=== PATIENT | female | born 1945 | race African-American/Black ===

== ENCOUNTER 2017-05-21 06:09 | Emergency (ER) | payer MEDICARE, MEDICAID ==
[2017-05-21 07:37] LABS: Anion Gap 14 mmol/L (10-20); BUN (Urea Nitrogen) 30 mg/dL (9.8-20.1); Calc. Creatinine Clearance 0 mL/min (70-130); Calcium 8.7 mg/dL (7.8-10.44); Carbon Dioxide 30 mmol/L (23-31); Chloride 99 mmol/L (98-107); Estimated GFR-MDRD 7; Glucose 146 mg/dL (83-110); Potassium 5.3 mmol/L (3.5-5.1); Sodium 138 mmol/L (136-145)
[2017-05-21 07:41] LABS: Troponin I 0.041 ng/mL (< 0.028)
== END 2017-05-21 08:48 | disposition home or self-care (01) ==
LOC: ERS 06:09
DX: J20.9 Acute bronchitis, unspecified (principal); I12.0 Hypertensive chronic kidney disease with stage 5 chronic kidney disease or end stage renal disease; E11.22 Type 2 diabetes mellitus with diabetic chronic kidney disease; N18.6 End stage renal disease; R51 Headache; R79.89 Other specified abnormal findings of blood chemistry; J45.909 Unspecified asthma, uncomplicated; F17.210 Nicotine dependence, cigarettes, uncomplicated; Z79.4 Long term (current) use of insulin; Z99.2 Dependence on renal dialysis; Z79.899 Other long term (current) drug therapy
CPT/HCPCS: 36415; 83880; 93005

== ENCOUNTER 2017-11-02 15:00 | Observation (INO) | payer MEDICARE, OTHER ==
[2017-11-02] MEDS ORDERED: hydrALAZINE 20 MG/ML VIAL SLOW IVP SCH (17:45)
[2017-11-02 19:30] VITALS: BMI 23.8
[2017-11-02] MEDS ORDERED: hydrALAZINE 20 MG/ML VIAL SLOW IVP PRN (20:03)
[2017-11-02] MEDS ORDERED: Dextrose 50% Abboject 50 ML SYRINGE SLOW IVP PRN (20:03)
[2017-11-02] MEDS ORDERED: Acetaminophen 500 MG TAB PO PRN (20:03)
[2017-11-02] MEDS ORDERED: Dextrose 5% in Water 1,000 ML IV PRN (20:03)
[2017-11-02] MEDS ORDERED: Ondansetron HCl/PF 4 MG/2 ML Vial IVP PRN (20:03)
[2017-11-02] MEDS ORDERED: cloNIDine 0.1 MG TAB PO PRN (20:03)
[2017-11-02] MEDS ORDERED: HumaLOG 300 UNITS/3 ML VIAL SC PRN ×2 (20:03)
[2017-11-02] MEDS ORDERED: Ondansetron ODT 4 MG TAB PO PRN (20:03)
[2017-11-02] MEDS: hydrALAZINE 25 MG TAB PO SCH (20:43)
[2017-11-02] MEDS ORDERED: Famotidine 20 MG TAB PO SCH (21:00)
--- NOTE | 2017-11-03 00:58 | HP ---
DATE OF ADMISSION: 11/02/2017 PRIMARY CARE PHYSICIAN: Ana salguero. PRIMARY SILVICULTURE FORESTER: Dr. Bedolla. CHIEF COMPLAINT: General weakness and confusion. HISTORY OF PRESENT ILLNESS: This is a 72-year-old -Burmese female with a known history of en d-stage renal disease on hemodialysis Wednesday, , and Wednesday. Patient states she underwent her regular hemodialysis session on the date of admission when she began feeling "bad." Patient admi tted to some nausea and stomach pain; however, felt generally weak and felt like her dialysis took to o much fluid off her. Patient denied any increased swelling, but does state she has been out of her chronic antihypertensives over approximately a week's time. Patient states she ran out of her medica tion, but has not had them refilled. 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 Patient denied any unilat eral weakness, fever, chills, dysuria, change to her bowel habits or exposure history. Patient denie s any family members with similar symptoms. Patient denies any recent trauma, syncope, or falls. In the emergency room, patient underwent general evaluation including CT of the brain showing no acute process. Patient was noted with elevated blood pressures on initial evaluation in the emergency room in the 200s/70s. Patient received IV hydralazine with overall improved systolics into the 160s. Durga corado was transferred to the observation unit for further evaluation. PAST MEDICAL HISTORY: 1. End-stage renal disease with hemodialysis. 2. Diabetes mellitus type 2, insulin requiring. 3. Hypertension, labile. 4. Smokeless tobacco use. 5. History of seizure disorder. PAST SURGICAL HISTORY: 1. Status post left upper extremity AV fistula placement. 2. Status post right upper chest Juan catheter placement. 3. Status post bilateral tubal ligation. CURRENT MEDICATIONS: Based on previous records reviewed in 2014: 1. Atenolol 100 mg p.o. daily. 2. Calcitriol 0.25 mcg p.o. daily. 3. Calcium carbonate 500 mg p.o. t.i.d. 4. Clonidine 0.1 mg p.o. q.4 hours p.r.n. systolic blood pressure greater than or equal to 180. 5. Hydralazine 75 mg p.o. t.i.d. 6. NPH insulin 10 units subcutaneously t.i.d. 7. Losartan 100 mg p.o. daily. 8. Minoxidil 5 mg p.o. daily. 9. Dilantin 200 mg p.o. b.i.d. ALLERGIES: SULFA. FAMILY HISTORY: Positive for hypertension and diabetes. SOCIAL HISTORY: Patient resides in the [place], [place] area with her son. Uses chewing tobacco jon y. No alcohol or illicit drug use. REVIEW OF SYSTEMS: The following complete review of systems was otherwise negative except as stated per HPI: Constitutional: Weight loss or gain, ability to conduct usual activities. Skin: Rash, it pastora. Eyes: Double vision, pain. ENT/Mouth: Nose bleeding, neck stiffness, pain, tenderness. Ca rdiovascular: Palpitations, dyspnea on exertion, orthopnea. Respiratory: Shortness of breath, whee zing, cough, hemoptysis, fever, or night sweats. Gastrointestinal: Poor appetite, abdominal pain, h eartburn, nausea, vomiting, constipation, or diarrhea. Genitourinary: Urgency, frequency, dysuria, nocturia. Musculoskeletal: Pain, swelling. Neurologic/Psychiatric: Anxiety, depression. Allergy/ Immunologic: Skin rash, bleeding tendency. PHYSICAL EXAMINATION: VITAL SIGNS: Currently, blood pressure 184/77, pulse 83, respiratory rate is 21, temperature 98.7 de grees Fahrenheit, O2 saturation 95% on room air. GENERAL APPEARANCE: This is a 72-year-old -Burmese female, alert and oriented x3, responsive , in no acute distress. HEENT: Pupils are equal, round, and reactive to light and accommodation. Extraocular muscles are in tact. No scleral icterus, no conjunctival injection. Nares patent. OP is clear. Teeth in poor rep air. NECK: Supple, no cervical adenopathy, no thyromegaly, no carotid bruits, no JVD appreciated. Cervic al spine with full active and passive range of motion. No meningeal signs noted. CHEST: Lungs are clear to auscultation bilaterally. CARDIOVASCULAR: S1, S2 with 3 to 4/6 systolic ejection murmur in the left upper sternal border. ABDOMEN: Rounded, soft, nontender, nondistended. Bowel sounds are positive in all four quadrants. There is no hepatosplenomegaly, no abdominal bruits, no rebound or guarding appreciated. EXTREMITIES: Warm and dry with fair turgor. Left upper extremity with AV fistula in place. No club christiano, cyanosis, or asymmetric edema of the lower extremities. Pulses are palpable distally at the do rsalis pedis, posterior tibial, and popliteal arteries bilaterally. Capillary refill less than 2 sec onds. NEUROLOGIC: Cranial nerves II-XII are grossly intact. No focal or lateralizing signs appreciated. Patient not observed ambulatory during this exam. PERTINENT LABORATORY AND X-RAY FINDINGS: Creatinine 5.80 estimated GFR of 9, glucose 113. LFTs with in normal limits. BNP 1067, previously noted 796 on 05/21/2017. Troponin I 0.072. CBC showed a whi te blood cell count of 5.5, hemoglobin 12, hematocrit 38, platelet count 223 with normal differential . Stool hemoccult dated 11/02/[address] of the brain without contrast dated 11/02/2017 s howed no acute cardiopulmonary process. Portable chest x-ray dated 11/02/2017 showed cardiomegaly wi thout acute process. EKG dated 11/02/2017, by my interpretation shows a sinus mechanism with heart r ates in the 60s. Incomplete right bundle branch block pattern noted. Voltage criteria consistent wi th left ventricular hypertrophy. No acute ST-T wave changes appreciated. ASSESSMENT AND PLAN: 1. Hypertensive urgency. Patient will be observed on the telemetry unit. We will initiate home ant ihypertensive regimen to include atenolol, hydralazine, losartan, and minoxidil. We will continue to monitor blood pressure trend. Clonidine and hydralazine p.r.n. systolic greater than or equal to 18 0. Suspect patient's presentation due to noncompliance. 2. Encephalopathy. Suspect metabolic and hypertensive related, improved currently. See #1 above. 3. End-stage renal disease with hemodialysis. We will continue to monitor clinically. No current e vidence to suggest acute volume overload. Patient completed her maintenance hemodialysis on the date of admission. 4. Noncompliance. We will offer educational resources to encourage compliance after discharge. 5. Smokeless tobacco abuse. We will offer cessation resources prior to discharge. 6. Prophylaxis. Sequential compression devices while in bed. Pepcid 20 mg p.o. b.i.d. 7. Code status is FULL. Surrogate medical decision maker is patient's son.
[2017-11-03] MEDS: hydrALAZINE 25 MG TAB PO SCH (06:13)
[2017-11-03 06:42] LABS: Hemoglobin 11.5 g/dL (12.0-16.0); Lymphocytes 18 % (21-51); MDiff Complete? YES; Mean Corpuscular HGB CONC 31.7 g/dL (32.0-36.0); Mean Corpuscular Hemoglobin 30.2 pg (27.0-31.0); Mean Corpuscular Volume 95.2 fL (78.0-98.0); Mean Platelet Volume 9.3 fL (7.4-10.4); Monocytes 4 % (0-10); Neutrophil 78 % (42-75); PLT Morphology Comment Appears Adequate; Platelet Count 242 thou/uL (130-400); RBC Distribution Width 14.5 % (11.5-14.5); RBC Morphology Normal; Red Blood Cell (RBC) Count 3.79 mill/uL (4.20-5.40); White Blood Cell (WBC) Count 5.6 thou/uL (4.8-10.8)
[2017-11-03 06:44] LABS: Anion Gap 13 mmol/L (10-20); BUN (Urea Nitrogen) 50 mg/dL (9.8-20.1); Calc. Creatinine Clearance 8 mL/min (70-130); Calcium 8.8 mg/dL (7.8-10.44); Carbon Dioxide 31 mmol/L (23-31); Chloride 99 mmol/L (98-107); Estimated GFR-MDRD 6; Glucose 83 mg/dL (83-110); Sodium 138 mmol/L (136-145)
[2017-11-03] MEDS ORDERED: Calcium Carbonate 500 MG ChewTAB PO SCH (08:00)
[2017-11-03] MEDS ORDERED: Calcitriol 0.25 MCG CAP PO SCH (09:00)
[2017-11-03] MEDS ORDERED: Minoxidil 2.5 MG TAB PO SCH (09:00)
[2017-11-03] MEDS ORDERED: Losartan 25 MG TAB PO SCH (09:00)
[2017-11-03] MEDS ORDERED: Atenolol 50 MG TAB PO SCH (09:00)
[2017-11-03 09:31] VITALS: TEMP 98.6
[2017-11-03 09:42] VITALS: BP 151/65
--- NOTE | 2017-11-03 12:30 | DIS ---
DATE OF ADMISSION: 11/02/2017 DATE OF DISCHARGE: 11/03/2017 DISCHARGE DIAGNOSES: 1. Hypertensive urgency due to medication noncompliance, resolved. 2. Encephalopathy, likely hypertensive induced, resolved. 3. End-stage renal disease with hemodialysis. 4. Smokeless tobacco abuse. 5. Medication noncompliance. 6. Diabetes mellitus type 2, insulin requiring. CONSULTATIONS: None. PERTINENT LABORATORY DATA AND X-RAY FINDINGS: Creatinine 7.49, estimated GFR of 6, calcium 8.8. CBC showed a white blood cell count of 5.6, hemoglobin 11.5, hematocrit 36.1, platelet count 242. Stool Hemoccult negative x1 on 11/02/2017. CT of the brain without contrast dated 11/02/2017 showed no ac [place] intracranial process. Portable chest x-ray dated 11/02/2017 showed no acute cardiopulmonary proc ess. HOSPITAL COURSE: Patient was observed on the telemetry unit after initially presenting with general weakness and hypertensive urgency in the context of running out of her blood pressure medications ove r the last 5-7 days. The patient was noted with mild confusion and encephalopathy likely due to hype rtensive factors. The patient was resumed on her regular blood pressure regimen with overall stable blood pressures during the hospital course. Metabolic and radiographic workup was essentially unrema rkable and patient remained clinically stable. Telemetry monitoring showed sinus mechanism without e vidence of acute arrhythmia or dysrhythmia. The patient overall clinically stable with supportive ma nagement and resumption of home blood pressure regimen. I have examined the patient at the time of d ischarge and discussed followup instructions. The patient overall clinically stable and ready for d ischarge on 11/03/2017. DISCHARGE MEDICATIONS: 1. Norvasc 10 mg 1 tab p.o. daily. 2. Atenolol 25 mg 1 tab p.o. daily. 3. Clonidine 0.2 mg p.o. b.i.d. 4. Hydralazine 50 mg p.o. t.i.d. 5. NPH insulin 30 units subcutaneously daily. 6. Albuterol sulfate HFA 2 puffs inhaled q.i.d. p.r.n. 7. Renvela 800 mg p.o. t.i.d. 8. Zoloft 50 mg p.o. daily. FOLLOWUP: The patient will follow up with [facility] in [place], [place]. The patient will follow u p with Dr. Bedolla with [facility] for hemodialysis Tuesdays, , and Saturdays. CONDITION ON DISCHARGE: Stable. ACTIVITY: Ad connor. DIET: ADA and heart healthy. CODE STATUS: FULL. DISPOSITION: Home 11/03/2017.
--- NOTE | 2017-11-03 17:04 | EKG ---
Test Reason : Blood Pressure : / mmHG Vent. Rate : 069 BPM Atrial Rate : 069 BPM P-R Int : 162 ms QRS Dur : 112 ms QT Int : 450 ms P-R-T Axes : 070 -54 025 degrees QTc Int : 482 ms Normal sinus rhythm Possible Left atrial enlargement Incomplete right bundle branch block Left anterior fascicular block Left ventricular hypertrophy Cannot rule out Septal infarct , age undetermined Abnormal ECG Confirmed by JOSE CHOWDARY, DR. Schilling ([id number]) on 11/03/2017 5:04:08 PM Referred By: Confirmed By:DR. Shakir GARCIA MD
[2017-11-03] MEDS ORDERED: Famotidine 20 MG TAB PO SCH (21:00)
== END 2017-11-03 10:11 | disposition home or self-care (01) ==
LOC: ERS 15:00 → 2SW 19:02
PROVIDERS: ADMIT Internal Medicine; ATTEND Internal Medicine
DX: I16.0 Hypertensive urgency (principal); G93.40 Encephalopathy, unspecified; I12.0 Hypertensive chronic kidney disease with stage 5 chronic kidney disease or end stage renal disease; E11.22 Type 2 diabetes mellitus with diabetic chronic kidney disease; N18.6 End stage renal disease; G40.909 Epilepsy, unspecified, not intractable, without status epilepticus; F17.290 Nicotine dependence, other tobacco product, uncomplicated; Z79.4 Long term (current) use of insulin; Z79.899 Other long term (current) drug therapy; Z88.2 Allergy status to sulfonamides; Z91.14 Patient's other noncompliance with medication regimen; Z99.2 Dependence on renal dialysis
CPT/HCPCS: 80048; 82274; 82962; 85007; 85027; 93005; 96374; 99285; G0378 ×2; 36415; 36416; A4216; J0360

== ENCOUNTER 2017-11-03 23:44 | Emergency (ER) | payer MEDICARE, OTHER ==
[2017-11-04] MEDS ORDERED: Acetaminophen 500 MG TAB ONE (00:55)
[2017-11-04] MEDS ORDERED: cloNIDine 0.1 MG TAB ONE (01:14)
[2017-11-04 01:25] LABS: ALT (SGPT) 13 U/L (8-55); AST (SGOT) 24 U/L (5-34); Albumin 4.1 g/dL (3.4-4.8); Alkaline Phosphatase 74 U/L (40-150); Anion Gap 20 mmol/L (10-20); BUN (Urea Nitrogen) 61 mg/dL (9.8-20.1); Bilirubin, Total 0.7 mg/dL (0.2-1.2); Calc. Creatinine Clearance 0 mL/min (70-130); Calcium 9.9 mg/dL (7.8-10.44); Carbon Dioxide 26 mmol/L (23-31); Chloride 96 mmol/L (98-107); Estimated GFR-MDRD 5; Globulin 3.5 g/dL (2.4-3.5); Glucose 179 mg/dL (83-110); Potassium 5.4 mmol/L (3.5-5.1); Protein, Total 7.6 g/dL (6.0-8.3); Sodium 137 mmol/L (136-145)
[2017-11-04 01:36] LABS: #Eosinphils 0.1 thou/uL (0.0-0.7); #Lymphocytes 0.9 thou/uL (1.20-3.40); #Monocytes 0.4 thou/uL (0.11-0.59); #Neutrophils 6.8 thou/uL (1.40-6.50); %Basophils 0.4 % (0.0-1.0); %Eosinophils 0.7 % (0.0-10.0); %Lymphocytes 10.6 % (21.0-51.0); %Monocytes 5.3 % (0.0-10.0); %Neutrophils 83.1 % (42.0-75.0); Hemoglobin 12.2 g/dL (12.0-16.0); Mean Corpuscular HGB CONC 31.6 g/dL (32.0-36.0); Mean Corpuscular Volume 95.1 fL (78.0-98.0); Mean Platelet Volume 9.5 fL (7.4-10.4); PLT Morphology Comment Appears Adequate; Platelet Count 180 thou/uL (130-400); RBC Distribution Width 14.5 % (11.5-14.5); Red Blood Cell (RBC) Count 4.08 mill/uL (4.20-5.40); White Blood Cell (WBC) Count 8.1 thou/uL (4.8-10.8)
[2017-11-04] MEDS ORDERED: Insulin Regular 300 UNITS/3 ML VIAL ONE (02:04)
[2017-11-04] MEDS ORDERED: Sodium Chloride For Inhalation 0.9% 3 ML NEB ONE (02:08)
[2017-11-04] MEDS ORDERED: Sodium Chloride 0.9% 100 ML ONE (02:08)
[2017-11-04] MEDS ORDERED: Albuterol Sulfate 2.5 mg/3 ml Neb ONE (02:08)
--- NOTE | 2017-11-04 08:08 | RAD ---
PORTABLE CHEST 1 VIEW: Date: 11/04/17 Time: 0018 hours HISTORY: Fall. FINDINGS: Comparison made with exam of 11/02/17. The heart size is enlarged. The aorta is tortuous. The lungs are well expanded without lobar consolid ation, pneumothoraces, kamlesh pulmonary edema, or pleural effusions. There are degenerative changes in the shoulder joints. IMPRESSION: Cardiomegaly. POS: [facility]
--- NOTE | 2017-11-04 08:56 | CT ---
PRELIMINARY REPORT/[facility]/EMERGENTY AFTER-HOURS PROCEDURE CT Head Without Intravenous Contrast EXAM DATE/TIME: 11/04/2017 12:27 AM CLINICAL HISTORY: 72 years old, female; Injury or trauma and signs and symptoms; Fall; Initial encounter; Abrasion; Not specified; Altered mental status/memory loss; Prior surgery; Patient HX: F72 dialysis patient presen ts to ed for evaluation of AMS. Son reports that the neighbors called ems due to the patient falling, and reports that she lives by herself. PT reports that her head hurts, and does not remember if she hit it TECHNIQUE: Axial computed tomography images of the head/brain without intravenous contrast. COMPARISON: No relevant prior studies available. FINDINGS: Brain: No evidence of acute large vessel infarction. No evidence of acute intracranial hemorrhage, ex traxial fluid or midline shift. Mild low density changes within the white matter bilaterally. Cerebel lum atrophic; otherwise, posterior fossa structures within normal limits. Ventricles: Mild prominence of the cerebral sulci and ventricles. Bones/joints: Normal. No acute fracture. Sinuses: Normal as visualized. No acute sinusitis. Mastoid air cells: Normal as visualized. No mastoid effusion. Soft tissues: Metallic densities in right posterior temporal-parietal scalp creates artifact limiting this study. IMPRESSION: 1. Metallic densities in right posterior temporal scalp creates artifact limiting this study. 2. No evidence of acute large vessel infarction. 3. No evidence of acute intracranial hemorrhage, extraxial fluid or midline shift. 4. Mild cerebral atrophy. 5. 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 Thank you for allowing us to participate in the care of your patient. Dictated and Authenticated by: Rita Echeverria MD 11/04/2017 12:57 AM Central Time ([place] & [place]) FINAL REPORT EMERGENCY AFTER HOURS CT BRAIN PERFORMED WITHOUT CONTRAST ENHANCEMENT: Date: 11/04/17 HISTORY: Fall with head injury. Altered mental status. COMPARISON: 11/02/17. FINDINGS: Area of metallic artifact obscures detail in the right parietooccipital region. Ventricular and ciste rnal system shows fairly age-appropriate change. There is chronic ischemic white matter change noted. No signs of intracerebral hemorrhage or extra-axial fluid collections. Mastoid air cells are clear. There is some ethmoid and maxillary sinus mucosal change. IMPRESSION: No acute intracranial abnormalities. This report is in agreement with the preliminary report issued by [facility]. POS: [facility]
--- NOTE | 2017-11-06 15:17 | EKG ---
Test Reason : Blood Pressure : / mmHG Vent. Rate : 073 BPM Atrial Rate : 073 BPM P-R Int : 184 ms QRS Dur : 124 ms QT Int : 448 ms P-R-T Axes : 072 -58 073 degrees QTc Int : 493 ms Normal sinus rhythm Possible Left atrial enlargement Left anterior fascicular block Left ventricular hypertrophy with QRS widening Septal infarct , age undetermined Abnormal ECG Confirmed by AARON BE DO ([id number]), writer editor VEENA YANG ([id number]) on 11/06/2017 3:17:06 PM Referred By: Confirmed By:AARON BE DO
== END 2017-11-04 03:28 | disposition home or self-care (01) ==
LOC: ERS 23:44
DX: E11.65 Type 2 diabetes mellitus with hyperglycemia (principal); I12.0 Hypertensive chronic kidney disease with stage 5 chronic kidney disease or end stage renal disease; N18.6 End stage renal disease; J45.909 Unspecified asthma, uncomplicated; E11.22 Type 2 diabetes mellitus with diabetic chronic kidney disease; Z79.4 Long term (current) use of insulin; Z99.2 Dependence on renal dialysis; F17.220 Nicotine dependence, chewing tobacco, uncomplicated; Z79.899 Other long term (current) drug therapy
CPT/HCPCS: 36415; 36416; 70450; 71045; 80053; 85025; 93005; 94640; J1815; J7050; J7611

== ENCOUNTER 2017-11-04 08:53 | Observation (INO) | payer MEDICARE, MEDICAID ==
[2017-11-04 09:54] LABS: #Basophils 0.1 thou/uL (0.0-0.2); #Eosinphils 0.1 thou/uL (0.0-0.7); #Monocytes 0.5 thou/uL (0.11-0.59); #Neutrophils 4.8 thou/uL (1.40-6.50); %Basophils 0.8 % (0.0-1.0); %Eosinophils 1.2 % (0.0-10.0); %Lymphocytes 15.7 % (21.0-51.0); %Monocytes 8.1 % (0.0-10.0); %Neutrophils 74.2 % (42.0-75.0); Hemoglobin 11.1 g/dL (12.0-16.0); Mean Corpuscular HGB CONC 31.7 g/dL (32.0-36.0); Mean Corpuscular Hemoglobin 30.2 pg (27.0-31.0); Mean Corpuscular Volume 95.3 fL (78.0-98.0); Mean Platelet Volume 9.1 fL (7.4-10.4); Platelet Count 215 thou/uL (130-400); RBC Distribution Width 14.4 % (11.5-14.5); Red Blood Cell (RBC) Count 3.66 mill/uL (4.20-5.40); White Blood Cell (WBC) Count 6.5 thou/uL (4.8-10.8)
--- NOTE | 2017-11-04 09:54 | RAD ---
PORTABLE CHEST: History: Syncopal episode. Comparison: Earlier exam, same day. FINDINGS: Heart size is enlarged. No signs of overt pulmonary edema or focal infiltrate. IMPRESSION: Cardiomegaly. POS: [facility]
[2017-11-04 10:18] LABS: ALT (SGPT) 12 U/L (8-55); AST (SGOT) 23 U/L (5-34); Albumin 3.6 g/dL (3.4-4.8); Alkaline Phosphatase 65 U/L (40-150); Anion Gap 12 mmol/L (10-20); BUN (Urea Nitrogen) 38 mg/dL (9.8-20.1); Bilirubin, Total 0.6 mg/dL (0.2-1.2); Calc. Creatinine Clearance 0 mL/min (70-130); Calcium 8.9 mg/dL (7.8-10.44); Carbon Dioxide 29 mmol/L (23-31); Chloride 99 mmol/L (98-107); Estimated GFR-MDRD 8; Globulin 3.1 g/dL (2.4-3.5); Glucose 112 mg/dL (83-110); Potassium 4.4 mmol/L (3.5-5.1); Protein, Total 6.7 g/dL (6.0-8.3); Sodium 136 mmol/L (136-145)
[2017-11-04 10:20] LABS: Troponin I 0.152 ng/mL (< 0.028)
--- NOTE | 2017-11-04 12:51 | CT ---
CT OF ABDOMEN AND PELVIS PERFORMED WITH INTRAVENOUS CONTRAST ENHANCEMENT: HISTORY: Abdominal pain, constipation. The patient also presented for a syncopal episode while the patient wa s at dialysis. FINDINGS: There are very small bilateral pleural effusions and bibasilar atelectatic lung change seen. There is a small hiatal hernia noted. The liver and spleen are within normal limits of size. Pancreas region is unremarkable. The gallbla dder is normal in appearance. There is a right adrenal mass which does not have features of an adenoma. It measures 2.5 cm in size . This will need to be followed up. The left adrenal is unremarkable. There are hypodensities involving both kidneys with a 4.3 cm hypodensity involving the left kidney wh ich has CT Hounsfield numbers that would suggest a cyst. There is a smaller hypodense lesion involvi ng the right kidney which has CT numbers that are not definitive for being a cyst being at 25 H[address] unit. This lesion measures 2.2 cm. There is a higher attenuation lesion involving the posterior cortex of the left kidney which could be a complex cyst versus a solid mass. It is seen on axial im age 32. It measures 2.1 cm. Other smaller lesions are too small to definitively characterize. Ther e is no significant periaortic or mesenteric adenopathy. There are fairly extensive vascular calcifi cations noted. No signs of bowel obstruction or evidence for any ascites. CT OF PELVIS PERFORMED WITH CONTRAST ENHANCEMENT: Bladder wall appears somewhat thickened. Even considering the degree of underdistension, I do not se e any adenopathy or mass. IMPRESSION: 1. Tiny bilateral pleural effusions. 2. Hypodensities involving both kidneys. Both kidneys were borderline small. Some of these lesions do not fulfill cyst criteria. They are most likely complex cysts, possibly hemorrhage, but a solid lesion is not definite excluded. Followup at least to assess for change in size would be recommended . 3. Indeterminate 2.5 cm right adrenal mass. It does not have features of an adenoma, but could stil l certainly represent a benign lesion. 4. Mild nonspecific bladder wall thickening. 5. Arthritic changes of the spine and both hips with particularly severe changes of the left hip. POS: [facility]
[2017-11-04] MEDS ORDERED: ISOVUE-370 76%-LOCM 1 ML ONE (14:49)
[2017-11-04] MEDS ORDERED: Iopamidol 370 76% 50 ML VIAL FS ONE (14:49)
[2017-11-04] MEDS ORDERED: Dextrose 50% Abboject 50 ML SYRINGE SLOW IVP PRN (14:54)
[2017-11-04] MEDS ORDERED: Nitroglycerin 0.4 MG TAB (25 Tab Bottle) PO PRN (14:54)
[2017-11-04] MEDS ORDERED: Dextrose 5% in Water 1,000 ML IV PRN (14:54)
[2017-11-04] MEDS ORDERED: Insulin Regular 300 UNITS/3 ML VIAL SC PRN ×2 (14:54)
[2017-11-04] MEDS ORDERED: hydrALAZINE 20 MG/ML VIAL SLOW IVP PRN (14:56)
[2017-11-04] MEDS ORDERED: Labetalol HCl 100 MG/20 ML VIAL SLOW IVP PRN (14:56)
[2017-11-04] MEDS ORDERED: Mag-Al 1200 mg/1200 mg/30 ML UDCUP PO PRN (14:57)
[2017-11-04] MEDS ORDERED: cloNIDine 0.1 MG TAB PO PRN (14:57)
[2017-11-04] MEDS ORDERED: Senokot 8.6 MG TAB PO PRN (14:57)
[2017-11-04] MEDS ORDERED: Ondansetron ODT 4 MG TAB PO PRN (14:57)
[2017-11-04] MEDS ORDERED: Acetaminophen 325 MG TAB PO PRN (14:57)
[2017-11-04] MEDS ORDERED: Ondansetron HCl/PF 4 MG/2 ML Vial IVP PRN (14:57)
[2017-11-04] MEDS ORDERED: Calcium Carbonate 500 MG ChewTAB PO PRN (14:57)
--- NOTE | 2017-11-04 15:11 | HP ---
DATE OF ADMISSION: 11/04/2017 CHIEF COMPLAINT: Syncopal episode. HISTORY OF PRESENT ILLNESS: The patient is a 72-year-old female with end-stage renal disease, on hemodialysis; diabetes mellitus type 2; and hypertension, who presented to the emergency room after a syncopal episode earlier today while she was at dialysis center. Her blood pressure at that time was in systolic 80s. The patient was discharged from this facility yesterday. She was admitted with hypertensive urgency. It was unclear what medications she took prior to admission. She was discharged home on Clonidine 0.2 mg twice a day, atenolol 25 mg daily, amlodipine 10 mg daily, hydralazine 50 mg 3 times a day. She was seen in the emergency room last night as well for altered mentation and was discharged home. CT brain was negative at that time. Blood pressure was 193/ 91. She received a dose of clonidine and was discharged home. At this time, the patient is somnolent; however, is able to answer appropriately. The history obtained from the chart as well as the son at the bedside. She denies any nausea, vomiting, chest discomfort, palpitations or pain at this time. In the emergency room, her initial vital signs showed temperature 98.1, respirations 20, pulse rate of 78 with a blood pressure 167/77 with O2 saturation 95% on room air. Her chest x-ray was negative for acute findings. CT abdomen showed bilateral pleural effusion without any acute findings. CT brain is pending at this time. PAST MEDICAL HISTORY: 1. End-stage renal disease, on hemodialysis, managed by Dr. Bedolla. 2. Hypertension with recent hospitalization for hypertensive urgency. 3. Tobacco dependence. 4. History of seizure disorder in the past. 5. Secondary hyperparathyroidism. 6. DM2 PAST SURGICAL HISTORY: 1. Dialysis access. 2. Bilateral tubal ligation. CURRENT HOME MEDICATIONS: At the bedside, the patient has the following medications clonidine 0.2 mg twice a day, hydralazine 50 mg 3 times a day, albuterol inhaler as needed, amlodipine 10 mg daily (the bottle was empty), atenolol 25 mg daily. ALLERGIES: The patient is allergic to SULFA. FAMILY HISTORY: Positive for hypertension and diabetes. SOCIAL HISTORY: She currently lives alone in [place]. Her son lives close by. She chews tobacco. No alcohol or drug use. She makes her own decision with the help of her family. REVIEW OF SYSTEMS: Cannot be reliably obtained from the patient due to current cognitive status. PHYSICAL EXAMINATION: VITAL SIGNS: As discussed above. GENERAL: A 72-year-old female, somnolent, in no apparent distress. HEENT: Head atraumatic, normocephalic. Sclerae are anicteric. Moist mucous membrane, no oral lesion. NECK: Supple, no JVD appreciated. No carotid bruit. LUNGS: Clear to auscultation bilaterally. No significant wheezing, rales or rhonchi. HEART: S1, S2 present. Regular rate and rhythm. A 3/6 systolic murmur over the mitral area. ABDOMEN: Soft, nontender, bowel sounds present. EXTREMITIES: No edema or calf tenderness. NEUROLOGIC/PSYCHIATRIC: Limited due to current cognitive status. The patient is somnolent; however, arousable and answers question appropriately most of the time. SKIN: Warm and dry. LYMPH NODES: No palpable lymph nodes in the neck. LABORATORY AND X-RAY FINDINGS: CBC showed WBC 6.5 with hemoglobin 11.1, hematocrit 34.9, platelet of 215. Chemistries showed sodium 136, potassium 4.4 , chloride 99, bicarbonate 29, BUN 38, creatinine 6.23, troponin 0.152. Chest x -ray by my review showed cardiomegaly without any acute findings. EKG by my review showed sinus rhythm with left anterior fascicular block and left ventricular hypertrophy. IMPRESSION: 1. Syncopal episode, probably secondary to hypotension. Her blood pressure was in systolic 80s at the dialysis center. She was started on clonidine, atenolol, hydralazine and amlodipine yesterday. 2. End-stage renal disease, on hemodialysis. Dr. Bedolla has been notified. 3. Elevated troponins in the indeterminate range. Troponins yesterday was 0.072. Today was 0.152. Echocardiogram will be obtained. We will also consult Dr. Duran for optimization of her blood pressure medication. She also has hypertensive heart disease on the EKG. 4. Long history of tobacco dependence. We will youth counselor her prior to discharge. 5. Encephalopathy, suspected secondary to labile blood pressure. 6. Chronic anemia secondary to renal insufficiency. 7. Right-sided adrenal mass found on the CT. Primary care physician advised to follow. 8. Suspected renal cyst. Follow up is recommended as outpatient. 9. DM2 The patient will be monitored as a 23-hour observation for now. A low dose aspirin will be started as well. CT scan of the brain is pending at this time. MTDD
--- NOTE | 2017-11-04 15:48 | CT ---
CT BRAIN: Date: 11-04-17 Provided Clinical History: Syncope. FINDINGS: Comparison is made with the CT examination performed earlier same date. Metallic densities in the right parietal scalp produce beam hardening artifact. Accompanied by patien t motion, these dramatically reduce the sensitivity of this examination. Given these limitations, the re is no evidence for mass producing intracranial hemorrhage. The ventricular system appears nondilat ed. No shift of the midline structures is evident. The basilar cisterns appear patent. The extracrani al soft tissues and osseous structures appear grossly normal. IMPRESSION: Limited study. No evidence for mass producing intracranial hemorrhage. POS: [facility]
[2017-11-04 16:07] LABS: Troponin I 0.214 ng/mL (< 0.028)
[2017-11-04 17:38] VITALS: BMI 24.5
[2017-11-04 19:04] LABS: Troponin I 0.239 ng/mL (< 0.028)
[2017-11-04] MEDS: Docusate 100 MG CAP PO SCH (20:21)
[2017-11-04] MEDS: hydrALAZINE 25 MG TAB PO SCH (20:21)
--- NOTE | 2017-11-04 20:55 | CON-2 ---
DATE OF CONSULTATION: 11/04/2017 CONSULTING PHYSICIAN: Deyanira Duran M.D. HISTORY OF PRESENT ILLNESS: Starr Fierro is a 72-year-old female with a past medical history of end-stag e renal disease on hemodialysis, type 2 diabetes mellitus and hypertension, who was sent over to the emergency room from dialysis after a syncopal episode which occurred during dialysis. Her blood pres sure at the time of the syncopal event was in the 80s systolic. The patient was recently discharged from [facility] on 11/03. She was observed in the [facility] for hypertensive urgency. She was discharged on a new regimen of blood pressure medications incl uding Norvasc 10 mg 1 tab p.o. daily, atenolol 25 mg 1 tab p.o. daily, clonidine 0.2 mg p.o. b.i.d., hydralazine 50 mg p.o. t.i.d. Her hypertensive urgency was thought to be secondary to medication non compliance because she was running out of her blood pressure medicines over one week prior to admissi on. She currently denies any symptoms. She denies any chest pain, shortness of breath, lightheadedness. She states that she does not remember the event. The first thing she remembers after getting to [facility] was waking up in the EMS. She was also seen in the emergency room last night for altered menta l status and was discharged home after being given clonidine. A CT of the brain was negative at that time and blood pressure is 193/91. She was discharged home after the blood pressure had improved. In the emergency room today, her vital signs showed temperature of 98.1, respiratory rate 20, pulse r ate of 78, blood pressure 167/77 with oxygen saturation of 95% on room air. Chest x-ray was negative . CT abdomen showed bilateral pleural effusions without any acute findings and CT of the brain was p ending. PAST MEDICAL HISTORY: 1. End-stage renal disease, on hemodialysis. 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 2. Hypertension with recent hospitalization for hypertensive urgency. 3. Tobacco dependence. 4. History of seizure disorder. 5. Secondary hyperparathyroidism. ALLERGIES: Patient is allergic to SULFA. MEDICATIONS: At the bedside, patient has the following medications including clonidine 0.2 mg b.i.d. , hydralazine 50 mg t.i.d., albuterol inhaler as needed, amlodipine 10 mg daily, and atenolol 25 mg d aily. PAST SURGICAL HISTORY: 1. Dialysis access. 2. Bilateral tubal ligation. FAMILY HISTORY: Positive for hypertension and diabetes. REVIEW OF SYSTEMS: Constitutional: No significant weight loss or weight gain. Vision: No changes. Hearing: No changes. Pulmonary: No cough or wheezing. GI: No nausea, vomiting, diarrhea. Skin : No rashes. CV: No chest pain or palpitations. SOCIAL HISTORY: She currently lives alone in [place] with her son living close by. She chews [employer]. No alcohol or drugs. She makes her own decisions with the help of her family. PHYSICAL EXAMINATION: GENERAL: This is a pleasant 72-year-old female in no acute distress. HEENT: Eyes, sclerae are nonicteric. Mouth, mucous membranes moist. NECK: Supple, without lymphadenopathy or thyromegaly. LUNGS: Clear. CARDIOVASCULAR: Currently regular. No rubs or gallops. Normal S1, S2. There is a 2/6 systolic mur mur heard over the mitral valve. ABDOMEN: Nontender. No guarding. EXTREMITIES: No clubbing, no cyanosis or edema. SKIN: Warm and dry. LABORATORY AND X-RAY FINDINGS: EKG showed normal sinus rhythm with left anterior fascicular block an d left ventricular hypertrophy. CBC showed white blood cell count 6.5, hemoglobin 11.1, hematocrit 3 4.9, platelets 215. Chemistry showed sodium of 136, potassium 4.4, chloride 99, bicarbonate 29, BUN 38, creatinine 6.23. Troponin was 0.152 on discharge yesterday. Troponin was 0.072. Chest x-ray sh owed cardiomegaly without any acute findings. ASSESSMENT AND PLAN: 1. Syncopal episode. 2. End-stage renal disease, on hemodialysis. 3. Indeterminate troponins. 4. Tobacco dependence. PLAN: 1. Syncopal episode is likely secondary to hypotension, possibly due to over aggressive antihyperten sive therapy. We will decrease dose of clonidine to 0.1 mg b.i.d. and recommend the patient hold ant ihypertensives the morning prior to her hemodialysis on Wednesday, Wednesday, and Wednesday. 2. Dr. Bedolla has been notified and made aware of the patient's admission. 3. Troponins are likely secondary to end-stage renal disease and incomplete hemodialysis session tod ay. We will continue to trend these. Patient is having no active chest pain and EKG shows no new si gns of ischemia. History, physical exam, assessment and plan were discussed with Dr. Duran, who is in agreement, also saw the patient simultaneously.
--- NOTE | 2017-11-04 22:27 | CON ---
DATE OF CONSULTATION: 11/04/2017 CARDIOLOGY CONSULTATION REASON FOR CONSULTATION: Syncope during dialysis. HISTORY OF PRESENT ILLNESS: Ms. Fierro is 69-year-old woman with history of labile hypertension who wa s admitted to the hospital just a couple of days ago with uncontrolled hypertension. The patient was released home, but had a hypotensive episode on dialysis and was sent back to the hospital. Please see the nursing notes for the full list of medication. PAST MEDICAL HISTORY: 1. Positive for end-stage renal disease on dialysis. 2. History of labile hypertension. PHYSICAL EXAMINATION: GENERAL: This is a pleasant elderly woman, does look somewhat older than her chronologic age of 72. VITAL SIGNS: Blood pressure is 195/75, earlier was hypotensive in the 80s. LUNGS: Clear. CARDIAC: Normal S1, normal S2 with a 2-3/6 systolic murmur. ABDOMEN: Soft, nontender. EXTREMITIES: No clubbing or cyanosis. There is no edema. IMAGING DATA: EKG sinus rhythm with what looks like left ventricular hypertrophy by voltage. PERTINENT LABORATORY DATA: Potassium was 4.4 and creatinine 6.2. ASSESSMENT: 1. Syncopal episode secondary to orthostatic hypotension. 2. Labile hypertension. 3. End-stage renal disease. PLAN: 1. Echocardiogram. 2. We will follow with you. Try to adjust medicines as best possible. Hold medicines morning of di alysis. In general, these type of patients are difficult to control with this degree of labile hyper tension. We will resume beta lucero in the morning. As mentioned, these patients are frequently ve ry difficult to control.
[2017-11-05 06:41] LABS: Anion Gap 15 mmol/L (10-20); BUN (Urea Nitrogen) 48 mg/dL (9.8-20.1); Calc. Creatinine Clearance 8 mL/min (70-130); Calcium 8.6 mg/dL (7.8-10.44); Carbon Dioxide 28 mmol/L (23-31); Chloride 96 mmol/L (98-107); Estimated GFR-MDRD 6; Glucose 75 mg/dL (83-110); Potassium 4.8 mmol/L (3.5-5.1); Sodium 134 mmol/L (136-145)
[2017-11-05 06:46] LABS: Troponin I 0.211 ng/mL (< 0.028)
[2017-11-05] MEDS ORDERED: Amlodipine 10 MG TAB PO SCH (09:00)
[2017-11-05] MEDS: Atenolol 50 MG TAB PO SCH (09:50)
[2017-11-05] MEDS: Aspirin 325 MG TAB PO SCH (09:50)
[2017-11-05] MEDS: Docusate 100 MG CAP PO SCH ×2 (09:50→21:04)
[2017-11-05] MEDS: hydrALAZINE 25 MG TAB PO SCH ×3 (09:50→21:04)
--- NOTE | 2017-11-05 10:30 | CON ---
DATE OF CONSULTATION: 11/05/2017 HISTORY OF PRESENT ILLNESS: Ms. Fierro is a 72-year-old black female with ESRD and admitted for syncop al episode. One day prior to admission, the patient was found to be unresponsive at home. She was i nitially brought to another ER. She was worked up with negative findings. She was subsequently brou ght to the dialysis. At the dialysis, she dropped her pressure. She became unresponsive. She was g iven about a liter of fluid which eventually improved her BP and she became more responsive. We are now being consulted for her maintenance hemodialysis. Please note she received dialysis yeste rday for at least 2 hours. REVIEW OF SYSTEMS: Positive for syncopal episode. No nausea, no vomiting. Positive for intermitten t abdominal pain, no diarrhea, no constipation, no productive cough, no fever or chills. Appetite an d energy level is fair. No gross hematuria. No hematemesis. No hematochezia. MEDICATIONS: Patient is currently on aspirin 325 mg once a day, Tenormin 50 mg once a day, Catapres 0.1 mg q.4 p.r.n., Colace 100 mg p.o. b.i.d., Humulin R sliding scale, Zofran 4 mg q.6 p.r.n. HOME MEDICATIONS: Included amlodipine 10 mg tab once a day, insulin 70/30, 30 units in the morning, DuoNeb q.6 p.r.n., minoxidil 10 mg daily, sertraline 50 mg daily, Renvela 800 mg 1 tab t.i.d. with me als, clonidine 0.2 mg b.i.d., hydralazine 50 mg p.o. t.i.d. PAST MEDICAL HISTORY: 1. Longstanding hypertension. 2. ESRD from hypertensive nephropathy. 3. Chronic obstructive pulmonary disease. 4. Type 2 diabetes mellitus. 5. Status post seizure disorder. PAST SURGICAL HISTORY: 1. Status post AV fistula placement. 2. Status post cuffed dialysis catheter placement. 3. Status post AV fistula placement. SOCIAL HISTORY: Patient lives alone. She has 6 children. Smoked for 20 years, one pack a day, curr ently not smoking. No alcohol. Status post blood transfusion. Education: 11th grade. 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 Sedentary lifestyle. No IV drug use. ALLERGIES: SULFA. TRAUMA: None. IMMUNIZATIONS: Up to date. HOSPITALIZATIONS: Please see past medical history. FAMILY HISTORY: No family history of ESRD. PHYSICAL EXAMINATION: VITAL SIGNS: Blood pressure is 179/120 - before BP meds, heart rate 62, respiratory rate 16, tempera ture 98.5, pulse ox 95%. GENERAL: Noted to be awake, alert, comfortable, not in distress. SKIN: Adequate turgor. HEENT: Pinkish conjunctivae, anicteric sclerae. NECK: No neck mass, no carotid bruits, no JVD. CHEST: No deformities. LUNGS: Clear breath sounds. No wheezing, no crackles. HEART: Normal sinus rhythm. No murmur, no gallops, no rubs. ABDOMEN: Globular, soft, nontender, no masses. EXTREMITIES: No edema, no deformities. NEUROLOGIC: Moving all extremities. No tremors, no asterixis, no ataxia. Oriented to 3 spheres. IMAGING DATA: 1. On 11/04/2017, CT scan of the brain, no acute intracranial abnormality. 2. Chest x-ray, increased lung markings, no infiltrates. 3. CT scan of the abdomen and pelvis shows bladder wall thickening, indeterminate 2.5 cm right adren al mass - most likely a benign lesion, hypodensities involving both kidneys - both kidneys are small. LABORATORY DATA: Chemistries of 11/05/2017 showed sodium of 134, potassium 4.8, chloride 96, carbon dioxide 28, BUN 48, creatinine 7.67, glucose 75, troponin I 0.211. ASSESSMENT AND PLAN: 1. End-stage renal disease - stable. Continue current hemodialysis regimen. Continue supportive ca re. No indication for any emergent hemodialysis today. 2. Incidental finding of hypodense lesions in the kidney which might suggests a complex cyst - recom mendation is to repeat imaging in the next several months. 3. Syncopal episode - most likely from low blood pressure/? of volume depletion. 4. Chronic anemia - there is no indication for any resumption of her Epogen at the present time.
--- NOTE | 2017-11-05 18:58 | PRG ---
DATE OF SERVICE: 11/05/2017 SUBJECTIVE: Ms. Fierro is doing okay today. Blood pressure is very high. No chest pain or pressure. OBJECTIVE: VITAL SIGNS: Blood pressure today was 200/77; pulse 65, regular. LUNGS: Clear. CARDIAC: Normal S1, normal S2. ABDOMEN: Soft, nontender. Echocardiogram showed severe left ventricular hypertrophy with normal ejection fraction. ASSESSMENT: 1. Severe labile hypertension. 2. Longstanding hypertension with left ventricular hypertrophy. 3. End-stage renal disease. 4. Recent hypotension. PLAN: 1. Amlodipine 20 mg a day, to be taken after dialysis. 2. Hydralazine 50 mg 3 times a day. 3. Atenolol 50 mg a day. 4. Stop minoxidil for now. Re-introduce if needed. Should be able to go home tomorrow after dialys is.
--- NOTE | 2017-11-05 21:54 | PDOC.PN ---
- Subjective Encounter Start Date: 11/05/17 Encounter Start Time: 15:00 Patient seen and examined for syncope. No new complaints. No CP/SOB. No overnight events - Objective Resuscitation Status: Resuscitation Status FULL:Full Resuscitation MAR Reviewed: Yes Vital Signs & Weight: Vital Signs (12 hours) Temp Pulse Resp BP BP BP BP 11/05/17 19:20 98.4 F 66 18 153/67 H 11/05/17 17:33 63 141/74 H 11/05/17 16:41 192/80 H 11/05/17 15:45 97.9 F 65 16 200/77 H 11/05/17 14:31 179/75 H 11/05/17 13:57 67 194/76 H 11/05/17 12:12 97.8 F 71 20 194/80 H 184/79 H 182/77 H Pulse Ox 11/05/17 19:20 96 11/05/17 17:33 11/05/17 16:41 11/05/17 15:45 100 11/05/17 14:31 11/05/17 13:57 11/05/17 12:12 99 Weight Weight 167 lb 1.6 oz I&O: 11/04/17 11/05/17 11/06/17 06:59 06:59 06:59 Intake Total 720 350 Output Total 350 400 Balance 370 -50 Result Diagrams: 11/04/17 09:43 11/05/17 05:45 Additional Labs: Accuchecks 11/05/17 11/05/17 11/05/17 21:06 16:57 11:39 POC Glucose 221 H 164 H 131 H 11/05/17 06:11 POC Glucose 75 EKG Reviewed by me: Yes (Tele SR) Phys Exam - Physical Examination Constitutional: NAD Respiratory: no wheezing, no rales, no rhonchi, clear to auscultation bilateral Cardiovascular: RRR, no rub 3/6 SM over M area, No heaves/pulsations Gastrointestinal: soft, non-tender, positive bowel sounds Musculoskeletal: no edema Neurological: moves all 4 limbs Psychiatric: A&O x 3 Dx/Plan - Plan DVT proph w/SCDs IMPRESSION/PLAN: 1. Syncopal episode due to hypotension. 2. End-stage renal disease, on hemodialysis. 3. Elevated troponins in the indeterminate range. 4. Tobacco dependence. 5. Encephalopathy, suspected secondary to labile blood pressure. improved 6. Chronic anemia secondary to renal insufficiency. 7. Right-sided adrenal mass found on the CT. 8. Suspected renal cyst. 9. DM2 PLAN: BP still labile. Plan d/w Dr Duran and Dr Bedolla. Cont Hydralazine 50 mg TID Atenolol changed to 50 mg daily Amlodipine will be increased to [address] Duran cont Clonidine PRN Cont sliding scale Review of Systems - Review of Systems Respiratory: negative: Cough, Dry, Shortness of Breath, Hemoptysis, SOB with Excertion, Pleuritic Pain, Sputum, Wheezing Cardiovascular: negative: chest pain, palpitations, orthopnea, paroxysmal nocturnal dyspnea, edema, light headedness, other - Medications/Allergies Allergies/Adverse Reactions: Allergies Allergy/AdvReac Type Severity Reaction Status Date / Time Sulfa (Sulfonamide Allergy Verified 11/04/17 17:59 Antibiotics) Medications: Current Medications Acetaminophen (Tylenol) 650 mg PO Q4H PRN PRN Reason: Headache/Fever or Pain Al Hydroxide/Mg Hydroxide (Maalox) 30 ml PO Q6H PRN PRN Reason: Heartburn or Indigestion Amlodipine Besylate (Norvasc) 20 mg PO DAILY ON LICENSE OF [facility] Aspirin (Aspirin) 325 mg PO DAILY ON LICENSE OF [facility] Last Admin: 11/05/17 09:50 Dose: 325 mg Atenolol (Tenormin) 50 mg PO DAILY ON LICENSE OF [facility] Last Admin: 11/05/17 09:50 Dose: 50 mg Calcium Carbonate (Tums) 1,000 mg PO Q4H PRN PRN Reason: Heartburn or Indigestion Clonidine (Catapres) 0.1 mg PO Q4H PRN PRN Reason: Systolic BP > 180 Last Admin: 11/05/17 12:37 Dose: 0.1 mg Dextrose/Water (Dextrose 50%) 25 gm SLOW IVP PRN PRN PRN Reason: Hypoglycemia Docusate Sodium (Colace) 100 mg PO BID ON LICENSE OF [facility] Last Admin: 11/05/17 21:04 Dose: 100 mg Glucagon (Glucagon) 1 mg IM PRN PRN PRN Reason: Hypoglycemia Hydralazine HCl (Apresoline) 10 mg SLOW IVP Q4H PRN PRN Reason: SBP Greater Than 180 Last Admin: 11/05/17 16:41 Dose: 10 mg Hydralazine HCl (Apresoline) 50 mg PO TID PARKER Last Admin: 11/05/17 21:04 Dose: 50 mg Dextrose/Water (D5w) 1,000 mls @ 0 mls/hr IV .Q0M PRN PRN Reason: Hypoglycemia Insulin Human Regular (Humulin R) 0 units SC .MILD SLIDING SCALE PRN PRN Reason: Mild Correctional Scale Insulin Human Regular (Humulin R) 0 units SC .BEDTIME SLIDING SC PRN PRN Reason: Bedtime Correctional Scale Last Admin: 11/05/17 21:07 Dose: 2 unit Labetalol HCl (Normodyne) 10 mg SLOW IVP Q4H PRN PRN Reason: Systolic BP > 180 Nitroglycerin (Nitrostat) 0.4 mg PO Q5MIN PRN PRN Reason: Chest Pain Ondansetron HCl (Zofran Odt) 4 mg PO Q6H PRN PRN Reason: Nausea/Vomiting Ondansetron HCl (Zofran) 4 mg IVP Q6H PRN PRN Reason: Nausea/Vomiting Senna (Senokot) 2 tab PO HSPRN PRN PRN Reason: Constipation
[2017-11-06 07:36] VITALS: TEMP 98.5
[2017-11-06] MEDS ORDERED: Amlodipine 10 MG TAB PO SCH ×3 (09:00→21:00)
--- NOTE | 2017-11-06 10:16 | PRG ---
DATE OF SERVICE: 11/06/2017 SUBJECTIVE: Ms. Fierro is a 72-year-old female admitted for near syncopal episode/lab ile blood pressure. We are consulted for her maintenance hemodialysis. I have scheduled this patien t for a regular dialysis today. She voices no new complaints. Blood pressure is much improved. PHYSICAL EXAMINATION: VITAL SIGNS: Blood pressure 158/68, heart rate 64, respiratory rate 15, temperature 98.5, pulse ox 9 5%. GENERAL: Awake, alert, comfortable, not in distress. SKIN: Adequate turgor. HEENT: She has pinkish conjunctivae, anicteric sclerae. NECK: No neck mass, no carotid bruits, no JVD. CHEST: No deformities. LUNGS: Clear breath sounds, no wheezing, no crackles. HEART: Normal sinus rhythm. No murmur, no gallops or rubs. ABDOMEN: Globular, soft, nontender. No masses. EXTREMITIES: No edema, no deformities. MEDICATIONS: Of 11/06/2017 was reviewed. LABORATORY DATA AND IMAGING: Of 11/06/2017, glucose 95. Of 11/05/2017, BUN 48, creatinine 7.67, pot assium was 4.8. On 11/04/2017, hemoglobin 11.1. Cardiac echo of 11/05/2017 showed a normal EF with severe concentric left ventricular hypertrophy. ASSESSMENT AND PLAN: 1. Hypertension. Continue current blood pressure medications. Cardiology has reviewed the blood pr essure medications. Has recommended amlodipine 10 mg tab b.i.d., atenolol to be increase in dosing a nd on p.r.n. Catapres. 2. End-stage renal disease, stable. We will continue current hemodialysis regimen with this patient . I have scheduled her for her regular dialysis today. Agree with current management.
[2017-11-06] MEDS: hydrALAZINE 25 MG TAB PO SCH ×2 (10:19→16:27)
[2017-11-06] MEDS: Docusate 100 MG CAP PO SCH (10:21)
[2017-11-06] MEDS: Aspirin 325 MG TAB PO SCH (10:21)
[2017-11-06] MEDS: Atenolol 50 MG TAB PO SCH (12:07)
--- NOTE | 2017-11-06 13:11 | DIS ---
DATE OF DISCHARGE: 11/06/2017 DISCHARGE DISPOSITION: Home. FOLLOWUP: Follow up with primary care physician at [facility] in 1 week. Follow up with Ne phrology, Dr. Bedolla, in 1 week. Follow up with Cardiology, Dr. Duran, in 2 weeks. The patient was seen and examined on the day of discharge. Denies any new complaints. No chest pain , shortness of breath or palpitations. BRIEF HOSPITAL COURSE: The patient is a 72-year-old female with end-stage renal disease, on hemodial ysis, who was discharged from this facility day before admission, presented to the hospital with sync opal episode. Her blood pressure during dialysis was in systolic 80s. Please refer to the history a nd physical for further details. The patient was admitted to the hospital with a diagnosis of syncope, probably secondary to hypotensi on. Please note that patient was recently started on clonidine. She also takes atenolol, hydralazin e and amlodipine. She was monitored on the telemetry unit. The patient was seen by Cardiology as we ll as Nephrology. Her medications have been optimized. Her blood pressure on the day of discharge w as 158/68. She was advised to monitor her blood pressure on a daily basis and to maintain a log. Sh e will also continue clonidine as needed. She has been cleared by consultants for discharge. She wi ll undergo hemodialysis prior to discharge. FINAL DIAGNOSES: 1. Syncope secondary to hypotension. 2. End-stage renal disease, on hemodialysis. 3. Elevated troponins in the indeterminate range secondary to demand ischemia. 4. Hypertension with hypertensive heart disease. The patient underwent an echocardiogram that showe d ejection fraction of 65%-70% with severe concentric left ventricular hypertrophy and diastolic dysf unction. 5. Chronic diastolic heart failure. 6. Tobacco dependence. 7. Encephalopathy, probably secondary to labile hypertension versus clonidine, resolved. 8. Right adrenal mass found on the CT abdomen along with renal cysts. Primary care physician advise d to follow. 9. Diabetes mellitus type 2. Plan of care was discussed with the patient in detail. She stated understanding. DISCHARGE MEDICATIONS: Amlodipine 10 mg twice a day, aspirin 81 mg daily, atenolol 50 mg daily, clon idine as needed, hydralazine 50 mg 3 times a day, Humulin 70/30, 30 units daily. All other home medi cations were left unchanged.
[2017-11-06] MEDS ORDERED: Heparin 10,000 UNITS/ 10 ML VIAL ONE (15:00)
[2017-11-06 16:28] VITALS: BP 157/69
== END 2017-11-06 17:36 | disposition home or self-care (01) ==
LOC: ERS 08:53 → 2SW 16:16
PROVIDERS: ADMIT Internal Medicine; ATTEND Internal Medicine
DX: I95.1 Orthostatic hypotension (principal); I12.0 Hypertensive chronic kidney disease with stage 5 chronic kidney disease or end stage renal disease; E11.22 Type 2 diabetes mellitus with diabetic chronic kidney disease; N18.6 End stage renal disease; I50.32 Chronic diastolic (congestive) heart failure; D63.1 Anemia in chronic kidney disease; N25.81 Secondary hyperparathyroidism of renal origin; F17.220 Nicotine dependence, chewing tobacco, uncomplicated; G93.40 Encephalopathy, unspecified; E27.8 Other specified disorders of adrenal gland; Z79.4 Long term (current) use of insulin; Z79.82 Long term (current) use of aspirin; Z79.899 Other long term (current) drug therapy; Z88.2 Allergy status to sulfonamides; Z99.2 Dependence on renal dialysis
CPT/HCPCS: 70450; 71045; 74177; 80048; 80053 ×2; 82553; 82962 ×4; 84484 ×3; 85025 ×2; 93005; 93306; 94640; 94760 ×2; 96374 ×2; 97139 ×2; 99285 ×2; G0378 ×2; 36415; 36416; 90935; G0257; J0360; J1644; J1815; J7050; J7611

== ENCOUNTER 2018-05-18 23:07 | Inpatient (IN) | payer MEDICARE, MEDICAID ==
[2018-05-19 00:01] LABS: Base Excess-Venous 2.2 mmol/L (-2.0 to 3.0); Bicarbonate (HCO3v) 27.8 mmol/L (22.0-28.0); CO2 Tension (PvCO2) 46.4 mmHg (40.0-50.0); Calcium, Ionized 1.04 mmol/L (See Comments:); Chloride 107 mmol/L (98-107); Hemoglobin - Calc 11.7 g/dL (12.0-16.0); O2 Tension (PvO2) 47.3 mmHg (35.0-45.0); Potassium 6.4 mmol/L (3.5-5.1); Sodium 140 mmol/L (138-145); T. Carbon Dioxide 29.2 mmol/L (22.0-28.0); pH (Venous) 7.385 (7.320-7.430); vO2 Saturation-calc 81.8 % (60.0-85.0)
[2018-05-19] MEDS ORDERED: Sodium Bicarb 50 MEQ/50 ML VIAL ONE ×2 (00:03→00:04)
[2018-05-19] MEDS ORDERED: Calcium Chloride 1 GM/10 ML Abboject SYRINGE ONE (00:03)
[2018-05-19] MEDS ORDERED: Sodium Bicarb 50 MEQ/50 ML Abboject 8.4% SYRINGE ONE (00:04)
--- NOTE | 2018-05-19 00:51 | PDOC.FPRHP ---
- History of Present Illness Chief Complaint: vomting History of Present Illness: 73 yo F with ESRD on HD presented to [facility] for vomiting after missing two HD days. In [facility] she was started on a nitro drip for SBP >200s. Patient denies headaches, vision changes, chest pain. Denies recent illness, fevers or chills. Patient endorses taking her antihypertensive meds regularly. EKG showed peak T waves. Her graduate student was consulted who agrees to urgent dialysis. ED Course: Nitro drip - Allergies/Adverse Reactions Allergies Allergy/AdvReac Type Severity Reaction Status Date / Time Sulfa (Sulfonamide Allergy Verified 11/04/17 17:59 Antibiotics) - Home Medications Medication Instructions Recorded Confirmed Type Ipratropium/Albuterol Sulfate 20 - 100 mcg INH Q6HR PRN 12/27/14 11/04/17 History [Combivent Respimat] Metoclopramide HCl 10 mg PO QID PRN 11/02/17 11/04/17 History Sertraline HCl [Zoloft] 50 mg PO DAILY 11/02/17 11/04/17 History Sevelamer Carbonate [Renvela] 800 mg PO TID-WM 11/02/17 11/04/17 History Albuterol Sulfate HFA (OR) 2 puff INH QID PRN #1 inh 11/03/17 11/04/17 Rx [Proventil Hfa (or)] HumuLIN 70/30 [HumuLIN 70/30 Vial] 30 unit SC DAILY-AC #1 vial 11/03/17 Rx hydrALAZINE HCl [Hydralazine HCl] 50 mg PO TID #90 tablet 11/03/17 11/04/17 Rx Aspirin [Aspirin EC] 81 mg PO DAILY #1 tablet. 11/05/17 Rx Atenolol [Tenormin] 50 mg PO DAILY #30 tab 11/05/17 Rx cloNIDine [Catapres] 0.1 mg PO Q8H PRN #14 tab 11/05/17 Rx Amlodipine Besylate [amLODIPine 10 mg PO BID #60 tablet 11/06/17 Rx Besylate] - History PMHx: HTN, DM2, ESRD on TTS HD, chronic diastolic heart failure, PSHx: hysterectomy FHx: n/c Social: former smoker with 20 pack year hx, denies etoh and drug use - Review of Systems General: denies: fever/chills, weight/appetite/sleep changes Eyes: denies: eye pain, vision changes ENT: denies: rhinorrhea Respiratory: denies: cough, congestion, shortness of breath Cardiovascular: denies: chest pain, palpitation Gastrointestinal: reports: vomiting. denies: nausea, diarrhea, abdominal pain Genitourinary: denies: dysuria Skin: denies: rashes, lesions Musculoskeletal: reports: swelling Neurological: reports: weakness Psychological: denies: anxiety, depression - Vital signs BP: [157/69] HR: [62] RR: [18] Tmax: [98.5] Pox: [94]% on [RA] Wt: [] - Physical Exam Constitutional: NAD -Constitutional: sleepy HEENT: normocephalic and atraumatic, PERRLA, conjunctiva clear Neck: supple, trachea midline Chest: no-tender to palpation, no lesions Heart: RRR, pulses present -Heart: systolic murmur Lungs: CTAB, no respiratory distress, good air movement Abdomen: soft, non-tender Musculoskeletal: normal structure -Musculoskeletal: 2+ edema lower legs, 1+ up to mid thighs Neurological: no focal deficit Heme/Lymphatic: no unusual bruising or bleeding Psychiatric: intact recent and remote memory FMR H&P: Results - Labs Lab results: VBG pCO2 46.4 mmHg (40.0-50.0) 05/18/18 23:57 VBG pO2 47.3 mmHg (35.0-45.0) H 05/18/18 23:57 - EKG Interpretation EKG: peaked T waves - Radiology Interpretation Chest x-ray Status: image reviewed by me, report reviewed by me Additional comment: enlarged heart, otherwise no acute CP processes FMR H&P: A/P - Problem List (1) Hyperkalemia Current Visit: Yes Status: Acute Code(s): E87.5 - HYPERKALEMIA (2) Physical deconditioning Current Visit: No Status: Acute Code(s): R53.81 - OTHER MALAISE (3) DM2 (diabetes mellitus, type 2) Current Visit: No Status: Chronic Qualifiers: Diabetes mellitus complication status: with kidney complications Diabetes mellitus complication detail: with chronic kidney disease Qualified Code(s): E11.22 - Type 2 diabetes mellitus with diabetic chronic kidney disease (4) ESRD (end stage renal disease) on dialysis Current Visit: No Status: Chronic Code(s): N18.6 - END STAGE RENAL DISEASE; Z99.2 - DEPENDENCE ON RENAL DIALYSIS (5) Hypertension Current Visit: No Status: Chronic Code(s): I10 - ESSENTIAL (PRIMARY) HYPERTENSION Qualifiers: Hypertension type: essential hypertension Qualified Code(s): I10 - Essential (primary) hypertension (6) Systolic murmur Current Visit: No Status: Chronic Code(s): I38 - ENDOCARDITIS, VALVE UNSPECIFIED - Plan #Hyperkalemia in the setting of ESRD on HD, missed HD -K 6.7, EKG with peaked T waves. s/p calcium gluconate in ED -Criminal Research Specialist, Dr. Matos, consulted -urgent dialysis tonight. -Will d/c nitro drip as high BPs likely 2/2 fluid overload. However if pt still elevated after HD, continue nitro drip, will need CCU admit -admit to tele/inpt #Hypertensive emergency 2/2 fluid overload from missed HD -192/77 in [facility] [place] ED, likely 2/2 fluid overload -pt asx, continue monitoring, will recheck after HD #Elevated troponins & BNP -2/2 above #CAROLYN on CKD -Creat 12.16, from missed HD -AM BMP #ERSD on HD -continue as above #HTN -continue home meds #chronic diastolic heart failure -HD tonight #DM2 -mild SS dvt ppx: heparin TID gi ppx: not indicated code:full dispo: >2 mn Will discuss w/ Dr. Gerber in AM FMR H&P: Upper Level - Pertinent history 73 yo AAF with PMH of ESRD on Wednesday, , Wednesday HD, HTN, DM2, HFpEF presenting as transfer for [place]. Pt initially went to ER due to c/o nausea and vomiting. Pt was found to have an initial SBP > 220 and on routine lab evaluation, found to have a potassium of 6.7. Pt admits to having missed her last 2 HD sessions. Pt was started on nitro gtt and transferred for higher level of care. ERMD here consulted pt's graduate student who plans for emergent HD overnight. PCP: Dr. Llanes - Pertinent findings BP 148/85 off nitro gtt, otherwise VSS Gen: pleasant, somewhat somnolent CV: RRR Resp: poor air movement EKG shows peaked T waves in V3-5 CXR shows no acute process - Plan Date/Time: 05/19/18 0051 I, Laron Cannon MD PGY3, have evaluated this patient and agree with findings/ plan as outlined by environmental intern resident. Pertinent changes/additions are listed here. 1. Hyperkalemia 2/2 hemodialysis noncompliance -Pt missed her last two sessions of HD and presents with K of 6.7. Pt has peaked T waves on EKG and given calcium in ER. -Orders placed for pt to undergo urgent HD overnight. -Nephrology recommendations greatly appreciated. -Monitor on telemetry after HD. 2. HTN emergency 2/2 fluid overload/above -Pt's initial BP necessitated nitroglycerin drip but this is likely due to fluid overload and will likely resolve after HD. -Restart home BP medications and continue to monitor closely. 3. Elevated BNP 2/2 above -HD per above. 4. Elevated cardiac enzymes 2/2 above -HD per above. disposition: Admit to inpatient telemetry. Addendum - Attending - Attending Attestation Date/Time: 05/19/18 0871 I personally evaluated the patient and discussed the management with Dr. Bedolla I agree with the History, Examination, Assessment and Plan documented above with any addition or exceptions noted below. 73 yo female with DM ,HTN and ESRD on HD patient missed 2 dialysis treatments related to transportation issues and presented to [place] ER with c/o N/V . Patient with hyperkalemia, Fluid overload and hypertensive emegency. Initial troponin was elevated and patient with tented T waves to anterior leads on EKG. Patient received calcium carbonate and sodium bicarbonate and was taken for urgent HD this am. Need to continue trend troponin and repeat EKG would be helpful to compare with prior EKG. Patient alert however somnolent from extended evaluation and treatment history obtained from past medical review. She denies and chest pain or heaviness and her N/V is resolved post dialysis and she denies any abdominal pain. Appreciate Nephrology recommendations. BP better post dialysis restart home rx this am.
[2018-05-19] MEDS ORDERED: Dextrose 5% in Water 1,000 ML IV PRN (06:09)
[2018-05-19] MEDS ORDERED: Dextrose 50% Abboject 50 ML SYRINGE SLOW IVP PRN (06:09)
[2018-05-19] MEDS ORDERED: HumaLOG 300 UNITS/3 ML VIAL SC PRN (06:09)
[2018-05-19 08:19] VITALS: BMI 22.7
[2018-05-19 09:06] LABS: CKMB 5.7 ng/mL (0-6.6)
[2018-05-19] MEDS: Heparin 5,000 UNITS/ML VIAL SC SCH ×2 (09:38→15:20)
[2018-05-19 10:00] LABS: Anion Gap 19 mmol/L (10-20); BUN (Urea Nitrogen) 32 mg/dL (9.8-20.1); Calc. Creatinine Clearance 7 mL/min (70-130); Calcium 9.1 mg/dL (7.8-10.44); Carbon Dioxide 25 mmol/L (23-31); Chloride 100 mmol/L (98-107); Estimated GFR-MDRD 6; Glucose 95 mg/dL (83-110); Sodium 139 mmol/L (136-145)
[2018-05-19 11:50] VITALS: TEMP 98.7
--- NOTE | 2018-05-19 13:45 | CON ---
DATE OF CONSULTATION: SERVICE: Renal Medicine. HISTORY OF PRESENT ILLNESS: Ms. Fierro is a 73-year-old black female with ESRD and was admitted due to labile hypertension as well as for her severe hyperkalemia. She underwent emergent hemodialysis last night. Please note, this patient missed her bus ride to dialysis last Wednesday, and for that reason, this may explain why she is hyperkalemic. Please note that the patient was previously in [facility] and now currently lives by herself. We are being consulted for maintenance hemodialysis. Please note, she received early dialysis chiropractic neurologist. REVIEW OF SYSTEMS: No chest pain. No shortness of breath. No productive cough. No fever or chills. No diarrhea. No headache. No dysuria. No nausea. No vomiting. No syncopal episode. Appetite and energy level are fair. No occasional joint pains. HOME MEDICATIONS: Include the following; 1. Clonidine 0.2 mg q.4 p.r.n. 2. Hydralazine 75 mg t.i.d. 3. Reglan 10 mg p.r.n. 4. DuoNeb p.r.n. 5. Minoxidil 10 mg q.a.m. 6. Zoloft 50 mg tablet once a day. 7. Amlodipine 10 mg once a day. 8. Atenolol 25 mg once a day. 9. Renvela 800 mg one tablet t.i.d. with meals. 10. Humulin 70/30 of 30 units subcu daily. PAST MEDICAL HISTORY: 1. ESRD from a presumed hypertensive nephropathy. 2. Type 2 diabetes mellitus. 3. Longstanding hypertension. 4. COPD. 5. Status post seizure disorder. PAST SURGICAL HISTORY: Status post AV fistula placement, status post cuffed dialysis catheter placement. SOCIAL HISTORY: The patient lives alone. Lives in [place]. She has 6 children. Smoked for 20 years 1 pack a day, currently not smoking. No alcohol. No IV drug abuse. No blood transfusion. 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 Sedentary lifestyle. No IV drug use. ALLERGIES: SULFA. TRAUMA: None. IMMUNIZATIONS: Up-to-date. HOSPITALIZATIONS: Please see past medical history. FAMILY HISTORY: No family history of ESRD. PHYSICAL EXAMINATION: VITAL SIGNS: Blood pressure is noted at 158/71, heart rate 76, respiratory rate 16, temperature 98.1, and pulse ox 97%. GENERAL: Noted to be awake, alert, comfortable, not in distress. SKIN: Adequate turgor. HEENT: She has a pinkish conjunctivae. Anicteric sclerae. NECK: No neck mass. No carotid bruits. No JVD. CHEST: No deformities. LUNGS: Clear breath sounds. No wheezing. No crackles. HEART: Normal sinus rhythm. No murmurs. No gallops. No rubs. ABDOMEN: Globular, soft, and nontender. No masses. EXTREMITIES: No edema. No deformities. LABORATORY DATA: Laboratories of May 18, 2018, time of 2357; sodium 140, potassium 6.4, chloride 107, and carbon dioxide 12. On May 18, 2018, time of 2022; sodium 138, potassium 6.7, chloride 98, carbon dioxide 24, BUN 70, creatinine 12.16, glucose 173, and calcium 9.4. AST 28, ALT 11. BNP is 2932. Troponin I 0.050. Albumin is 3.8. IMAGING DATA: Chest x-ray, no overt CHF. CT scan of the abdomen and pelvis shows stable 2.5 cm right adrenal mass, bilateral renal disease, nonobstructing right renal calculus, small bilateral pleural effusions. ASSESSMENT AND PLAN: 1. Hyperkalemia - much improved from 6.8 to 6.4, even before dialysis. She received Kayexalate at that time. I do anticipate that the potassium will now be within normal. 2. End-stage renal disease, stable. We will continue current Wednesday, , and Wednesday hemodialysis with this patient. Again, fluid removal only as tolerated. We will be rechecking another basic metabolic panel and CBC in a.m. 3. Hypertension. I would suggest we continue her current antihypertensive regimen. The patient was counseled regarding missing her dialysis treatment. Job ID: [id number]
[2018-05-19 16:17] VITALS: BP 188/81
== END 2018-05-19 18:09 | disposition home or self-care (01) | DRG 640 ==
LOC: ERS 23:07 → ERHOLD 05-19 00:22 → 2SE 05-19 05:22
PROVIDERS: ADMIT Internal Medicine Nephrology; ATTEND Internal Medicine Nephrology
PROC: 5A1D70Z Performance of Urinary Filtration, Intermittent, Less than 6 Hours Per Day (ICD-10-PCS; principal; 2018-05-19)
DX: E87.5 Hyperkalemia (principal); N18.6 End stage renal disease; I16.1 Hypertensive emergency; N17.9 Acute kidney failure, unspecified; I13.2 Hypertensive heart and chronic kidney disease with heart failure and with stage 5 chronic kidney disease, or end stage renal disease; I50.32 Chronic diastolic (congestive) heart failure; R53.81 Other malaise; E11.22 Type 2 diabetes mellitus with diabetic chronic kidney disease; R01.1 Cardiac murmur, unspecified; Z88.2 Allergy status to sulfonamides; Z91.15 Patient's noncompliance with renal dialysis; Z90.710 Acquired absence of both cervix and uterus; Z87.891 Personal history of nicotine dependence
CPT/HCPCS: 36415; 36416; 80048; 82330; 82435; 82553; 82803; 84132; 84295; 84484; 85014; 93005; 93010; J1644

== ENCOUNTER 2018-12-17 22:27 | Inpatient (IN) | payer MEDICARE, MEDICAID ==
[2018-12-17] MEDS ORDERED: hydrALAZINE 20 MG/ML VIAL ONE ×2 (22:54→23:46)
--- NOTE | 2018-12-17 23:00 | RAD ---
EXAM: Portable chest PROVIDED CLINICAL HISTORY: Chest pain COMPARISON: 05/18/2018 FINDINGS: Cardiac silhouette remains enlarged. Vascular calcification is again seen. Obscuration of the medial left hemidiaphragm may reflect left basilar pleural and/or parenchymal opacity. Pulmonary interstitium is upper limits normal to mildly engorged. IMPRESSION: 1. Cardiomegaly and prominence of the pulmonary vasculature. 2. Obscuration of the medial left hemidiaphragm may reflect left basilar pleural and/or parenchymal o pacity.
[2018-12-17 23:05] LABS: #Eosinphils 0.1 thou/uL (0.0-0.7); #Lymphocytes 1.4 thou/uL (1.20-3.40); #Monocytes 0.7 thou/uL (0.11-0.59); #Neutrophils 3.1 thou/uL (1.40-6.50); %Basophils 0.1 % (0.0-1.0); %Eosinophils 2.5 % (0.0-10.0); %Lymphocytes 26.3 % (21.0-51.0); %Monocytes 13.6 % (0.0-10.0); %Neutrophils 57.6 % (42.0-75.0); Hemoglobin 12.2 g/dL (12.0-16.0); Mean Corpuscular Hemoglobin 29.2 pg (27.0-31.0); Mean Platelet Volume 9.9 fL (7.4-10.4); Platelet Count 214 thou/uL (130-400); RBC Distribution Width 13.8 % (11.5-14.5); White Blood Cell (WBC) Count 5.4 thou/uL (4.8-10.8)
[2018-12-17 23:26] LABS: ALT (SGPT) Less than 7 U/L (8-55); AST (SGOT) 16 U/L (5-34); Albumin 3.7 g/dL (3.4-4.8); Alkaline Phosphatase 64 U/L (40-110); Anion Gap 14 mmol/L (10-20); BUN (Urea Nitrogen) 16 mg/dL (9.8-20.1); Bilirubin, Total 0.5 mg/dL (0.2-1.2); Calc. Creatinine Clearance 0 mL/min (70-130); Calcium 9.6 mg/dL (7.8-10.44); Carbon Dioxide 35 mmol/L (23-31); Chloride 98 mmol/L (98-107); Estimated GFR-MDRD 11; Globulin 3.4 g/dL (2.4-3.5); Glucose 130 mg/dL (83-110); Potassium 4.2 mmol/L (3.5-5.1); Protein, Total 7.1 g/dL (6.0-8.3); Sodium 143 mmol/L (136-145)
[2018-12-17 23:48] LABS: CKMB 2.3 ng/mL (0-6.6)
--- NOTE | 2018-12-18 | CT ---
Exam: CT brain PROVIDED CLINICAL HISTORY: Headache COMPARISON: 11/30/2018 FINDINGS: Evaluation is limited due to beam hardening artifact from metallic density right parietal scalp. The ventricular system is normal in size and morphology. No evidence for mass-producing intracranial hemorrhage. The extracranial soft tissues and osseous structures demonstrate no evidence for an acute abnormality. IMPRESSION: No evidence for mass-producing intracranial hemorrhage.
[2018-12-18] MEDS ORDERED: Furosemide 40 MG/4 ML VIAL ONE (01:11)
[2018-12-18] MEDS ORDERED: Aspirin 325 MG TAB ONE (01:11)
[2018-12-18] MEDS ORDERED: Morphine 4 MG/ML VIAL ONE (01:11)
--- NOTE | 2018-12-18 01:50 | PDOC.FPRHP ---
- History of Present Illness Chief Complaint: right hip pain, headache History of Present Illness: Pt reports to ED for right hip pain and bad headache as well. Last two ER visits were at [facility] when she fell twice in September. Was found to have chronic hip fracture & hip arthritis. R hip pain started on Wednesday or Wednesday and acutely worsened yesterday. Has a push walker she has continued to be able to use this week. Told ER staff she ran out of her BP meds (clonidine) earlier this week. Also +SOB, is not on oxygen at home, but here is requiring 2L O2 NC. Reports she has chest pain and nausea "off and on." Denies vomiting. Says she had a fever sometime last week. Denies vision changes but reports she has cataracts so she cannot see that well. Has HD Wednesday, , Wednesday. PCP: Dr. Llanes ED Course: Given 40 IV lasix, 5 then 10 of hydralazine, ASA 324mg, morphine 4mg, and one DuoNeb. - Allergies/Adverse Reactions Allergies Allergy/AdvReac Type Severity Reaction Status Date / Time Sulfa (Sulfonamide Allergy Verified 12/18/18 03:23 Antibiotics) - Home Medications Medication Instructions Recorded Confirmed Type Sertraline HCl [Zoloft] 50 mg PO DAILY 11/02/17 12/18/18 History Albuterol Sulfate HFA (OR) 2 puff INH QID PRN #1 inh 11/03/17 12/18/18 Rx [Proventil Hfa (or)] HumuLIN 70/30 [HumuLIN 70/30 Vial] 30 unit SC DAILY-AC #1 vial 11/03/17 Rx Atenolol [Tenormin] 50 mg PO DAILY #30 tab 11/05/17 12/18/18 Rx cloNIDine [Catapres] 0.1 mg PO Q8H PRN #14 tab 11/05/17 12/18/18 Rx Amlodipine [Norvasc] 10 mg PO DAILY 12/18/18 12/18/18 History Metoclopramide HCl [Reglan] 10 mg PO Q6HR PRN 12/18/18 12/18/18 History Minoxidil 4 tab PO HS 12/18/18 12/18/18 History Sevelamer Carbonate [Renvela] 800 mg PO TID-WM 12/18/18 12/18/18 History hydrALAZINE [Apresoline] 75 mg PO Q8HR PRN 12/18/18 12/18/18 History traMADol HCl [Tramadol HCl] 50 mg PO BID PRN 12/18/18 12/18/18 History - History PMHx: COPD, ESRD on HD T//Sat, T2DM, CHF diastolic and systolic. PSHx: Tubal ligation FHx: not assessed Social: - Lives at home and one of her sons stays with her at times - Had been living w/ sister s/p her recent falls. - Previous 1 ppd smoker for 2-3 decades. Quit over a decade ago. - Previous social alcohol drinker. No illicit drugs. - Review of Systems General: reports: fever/chills (reports fever sometime last week.), other ( recurrent falls, uses walker) Eyes: denies: vision changes Respiratory: reports: shortness of breath. denies: cough Cardiovascular: reports: chest pain (mild) Gastrointestinal: reports: nausea. denies: vomiting, diarrhea Genitourinary: denies: dysuria Skin: denies: rashes Musculoskeletal: reports: pain (hips bilaterally), stiffness, arthritis/ arthralgias Neurological: denies: syncope, seizure, weakness Psychological: reports: depression (takes sertraline). denies: anxiety - Vital signs BP: 225/102 HR: 86 RR: 18 Tmax: 97.9 Pox: 99% on 2L O2 NC Wt: 66 kg - Physical Exam Constitutional: NAD HEENT: normocephalic and atraumatic, grossly normal hearing, MMM, oropharynx clear Neck: supple, trachea midline, no LAD Heart: RRR, normal S1/S2 (systolic murmur) -Lungs: bibasilar crackles Abdomen: soft, non-tender, bowel sounds present (upper abd distended but soft.) Musculoskeletal: normal structure, normal tone Neurological: no focal deficit Skin: no rash/lesions, no jaundice Heme/Lymphatic: no unusual bruising or bleeding Psychiatric: normal mood and affect, intact recent and remote memory FMR H&P: Results - Labs Result Diagrams: 12/17/18 22:57 12/17/18 22:57 Lab results: WBC 5.4 thou/uL (4.8-10.8) 12/17/18 22:57 Hgb 12.2 g/dL (12.0-16.0) 12/17/18 22:57 Hct 38.2 % (36.0-47.0) 12/17/18 22:57 MCV 91.0 fL (78.0-98.0) 12/17/18 22:57 Plt Count 214 thou/uL (130-400) 12/17/18 22:57 Neutrophils % 57.6 % (42.0-75.0) 12/17/18 22:57 Sodium 143 mmol/L (136-145) 12/17/18 22:57 Potassium 4.2 mmol/L (3.5-5.1) 12/17/18 22:57 Chloride 98 mmol/L (98-107) 12/17/18 22:57 Carbon Dioxide 35 mmol/L (23-31) H 12/17/18 22:57 BUN 16 mg/dL (9.8-20.1) 12/17/18 22:57 Creatinine 4.67 mg/dL (0.6-1.1) H 12/17/18 22:57 Glucose 130 mg/dL (83-110) H 12/17/18 22:57 Calcium 9.6 mg/dL (7.8-10.44) 12/17/18 22:57 Total Bilirubin 0.5 mg/dL (0.2-1.2) 12/17/18 22:57 AST 16 U/L (5-34) 12/17/18 22:57 ALT Less than 7 U/L (8-55) L 12/17/18 22:57 Alkaline Phosphatase 64 U/L (40-110) 12/17/18 22:57 CK-MB (CK-2) 2.3 ng/mL (0-6.6) 12/17/18 22:57 B-Natriuretic Peptide 2433.8 pg/mL (0-100) H 12/17/18 22:57 Serum Total Protein 7.1 g/dL (6.0-8.3) 12/17/18 22:57 Albumin 3.7 g/dL (3.4-4.8) 12/17/18 22:57 - EKG Interpretation EKG: peaked T waves, similar to previous - Radiology Interpretation Chest x-ray Status: image reviewed by me Additional comment: cardiomegaly, L pleural effusion CT scan - head Status: image reviewed by me (neg) US - venous Status: image reviewed by me (neg for DVT on R) FMR H&P: A/P - Problem List (1) Hypertensive urgency Current Visit: Yes Status: Acute Code(s): I16.0 - HYPERTENSIVE URGENCY (2) Physical deconditioning Current Visit: No Status: Chronic Code(s): R53.81 - OTHER MALAISE (3) DM2 (diabetes mellitus, type 2) Current Visit: No Status: Chronic Qualifiers: Diabetes mellitus complication status: with kidney complications Diabetes mellitus complication detail: with chronic kidney disease Qualified Code(s): E11.22 - Type 2 diabetes mellitus with diabetic chronic kidney disease (4) ESRD (end stage renal disease) on dialysis Current Visit: No Status: Chronic Code(s): N18.6 - END STAGE RENAL DISEASE; Z99.2 - DEPENDENCE ON RENAL DIALYSIS (5) Epilepsy Current Visit: No Status: Chronic Code(s): G40.909 - EPILEPSY, UNSP, NOT INTRACTABLE, WITHOUT STATUS EPILEPTICUS Qualifiers: Epilepsy type: unspecified Intractability: not intractable Status epilepticus: without status epilepticus Qualified Code(s): G40.909 - Epilepsy , unspecified, not intractable, without status epilepticus (6) Hypertension Current Visit: No Status: Chronic Code(s): I10 - ESSENTIAL (PRIMARY) HYPERTENSION Qualifiers: Hypertension type: essential hypertension Qualified Code(s): I10 - Essential (primary) hypertension - Plan 73 yo F w/ history of HTN and CHF admitted for: Hypertensive urgency vs. emergency - likely secondary to not taking medications and acute CHF exacerbation - Hydralazine 10mg slow IVP if SBP > 190 - Controlled decrease of BP - Begin home amlodipine but at 10mg daily instead of BID CHF exacerbation, diastolic dysfunction Elevated troponins - Will give VTE ppx w/ heparin - EKG showed peaked T waves, unchanged from prior EKG - Last ECHO 10/2017 showed EF 65-70%, marked LVH, diastolic dysfunction - Consider repeat echo for evaluation of current cardiac function - Appears fluid overloaded on exam - Lasix 40 IV given in ER - Hold lasix for now and reassess throughout the day. ESRD on HD - electrolytes stable, received HD Wednesday. - Plan for HD Wednesday and - Renally dose medications - High protein diet, with heart healthy, low sodium and consistent carbohydrates. HTN - see above COPD - takes combivent at home, will give dulera here - duoNebs prn Depression - continue sertraline T2DM - continue home insulin 70/30 - glucose checks ACHS - hypo/hyper-glycemia protocol - mild ISS Physical deconditioning - PT/OT consult - Case mgmt for dispo Code : FULL VTE PPx: heparin GI ppx: none Noris Davalos MD PGY1 Disposition/LOS: Admit to telemetry inpt. LOS > 48H FMR H&P: Upper Level - Plan Date/Time: 12/18/18 0145 73 yo f admitted for hypertensive emergency. She ran out of clonidine ~ one week ago. Also endorse hip pain. She has severe OA. BP: 200s/150s HR 80s 98% on RA PE: NAD wet, rales, wheezing bilaterally lower lung [place] RRR abdomen slightly distended, soft, nontender Labs: bnp 2433 Cr 4.67 glucose [address]: negative EKG: peaked t waves A/P: #Hypertensive emergency 2/2 medication noncompliance and fluid overload -pt received nitro paste in the ER as well as hydralazine -will continue hydralazine 10mg IV prn systolic bp >190 -goal to decrease no more than ~30% over the next few hours -slowly will decrease to goal -hd ct negative for bleed -Will restart amlodipine 10mg po daily and monitor closely #Elevated troponins -2/2 above -EKG showed peaked t waves, unchanged from prior EKG -will trend troponins #ERSD on HD -continue #HTN -restart amlodipine, titrate as needed #chronic diastolic heart failure -elevated BNP -restart home medications -HD , , S #DM2 -mild SS -restart home medications #Right hip pain- -tylenol and tramadol prn pain -has had imaging regarding fall in November, sever OA, no fracture - Addendum - Attending - Attending Attestation Date/Time: 12/18/18 5045 I personally evaluated the patient and discussed the management with Dr. Davalos. I agree with the History, Examination, Assessment and Plan documented above with any addition or exceptions noted below. The patient is admitted for hypertensive urgency. Restarting medications. Will adjust as needed. Trend troponins. Dialysis mgmt per nephro. Will get Pt to work with pt to assess ambulation.
[2018-12-18] MEDS ORDERED: hydrALAZINE 20 MG/ML VIAL SLOW IVP PRN (03:23)
[2018-12-18] MEDS ORDERED: Acetaminophen 325 MG TAB PO PRN (03:24)
[2018-12-18] MEDS ORDERED: HYDROcodone/Acetaminophen 5/325 mg Tablet PO PRN ×2 (03:24)
[2018-12-18] MEDS ORDERED: Ondansetron PF 4 MG/2 ML Vial IVP PRN ×2 (03:24→03:25)
[2018-12-18] MEDS ORDERED: Ondansetron ODT 4 MG TAB SL PRN (03:24)
[2018-12-18] MEDS ORDERED: Ondansetron ODT 4 MG TAB PO PRN (03:25)
[2018-12-18] MEDS ORDERED: Dextrose 5% in Water 1,000 ML IV PRN (03:25)
[2018-12-18] MEDS: hydrALAZINE 20 MG/ML VIAL SLOW IVP PRN (03:45)
[2018-12-18] MEDS: PROVENTIL INHALER 6.7 G (200 INHALATIONS) INH PRN (03:53)
[2018-12-18] MEDS ORDERED: Albuterol Sulfate 1.25 MG/3 ML NEB NEB PRN (04:07)
[2018-12-18] MEDS: Mometasone/Formoterol 120 PUFF INHALER INH SCH ×2 (07:24→19:39)
[2018-12-18] MEDS ORDERED: HumuLIN 70/30 (300 UNITS/3 ML VIAL) SC SCH (07:30)
--- NOTE | 2018-12-18 07:35 | ULT ---
ULTRASOUND DOPPLER DUPLEX VENOUS RIGHT LOWER EXTREMITY: DATE: 12/18/2018 2:02 AM HISTORY: 73-year-old female with right lower extremity edema. There is no preliminary report by virtual radiologic. TECHNIQUE: Grayscale, color-flow, and spectral analysis, of major veins of right lower extremity. FINDINGS: There is demonstration of blood flow with normal compressibility, of the right common femoral, profun da femoral, greater saphenous, femoral, popliteal, and posterior tibial, veins. There is edema in the superficial soft tissues in the right leg superficial to the region of the posterior tibial vein. IMPRESSION: 1. No deep venous thrombosis of right lower extremity. 2. Right leg soft tissue edema.
--- NOTE | 2018-12-18 08:32 | RAD ---
Radiograph pelvis one view: DATE: 12/18/2018 Time: 12:54 AM HISTORY: 73-year-old female with right hip pain FINDINGS: Although no acute fracture is identified, the osteopenia and body habitus lowers the sensitivity for the detection of such. Again noted is the very severe DJD of the left hip with superior migration of the left hip joint. There is severe bony hypertrophy focally at the right lateral acetabular roof. Right femoral head contour is maintained. No high-grade joint space narrowing at right hip. No interval change. IMPRESSION: 1. Large osseous excrescence at right lateral acetabular roof, either osteophyte or large enthesophyt e. 2. No other major pathology of right hip identified. 3. Very severe osteoarthrosis of left hip.
--- NOTE | 2018-12-18 08:43 | RAD ---
Radiograph left hip 2 views: HISTORY: 73-year-old female with acute traumatic left hip pain after fall FINDINGS: Left femoral head articulates with pelvis superior to expected normal location. Severe joint space na rrowing of this pseudoarticulation with moderate to severe bony hypertrophy. Flattening of femoral head with mild irregularity. Large number of subchondral cysts. Foreshortening and remodeling of femo ral neck and subtrochanteric region. No acute fracture identified. Osteopenia. No dislocation. No interval change since 11/12/2018. IMPRESSION: 1. No acute fracture identified. 2. 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 3. The osteopenia and the anatomical distortion caused by the above chronic changes, could obscure an acute fracture.
[2018-12-18] MEDS ORDERED: Prevnar 13-Val Conj/PF 0.5 ML SYRINGE IM ONE (09:00)
[2018-12-18 10:23] LABS: Troponin I 0.102 ng/mL (< 0.028)
[2018-12-18] MEDS: Aspirin 81 mg Enteric Coated Tablet PO SCH (10:23)
[2018-12-18] MEDS: Amlodipine 10 MG TAB PO SCH (10:23)
[2018-12-18] MEDS: Heparin 5,000 UNITS/ML VIAL SC SCH ×3 (10:25→21:29)
[2018-12-18] MEDS: Dextrose 50% Abboject 50 ML SYRINGE SLOW IVP PRN ×2 (13:00→15:07)
[2018-12-18] MEDS: Dextrose 10% in Water 1,000 ML IV SCH (14:32)
[2018-12-19] MEDS: traMADol HCl 50 MG TAB PO PRN ×2 (02:26→13:16)
[2018-12-19] MEDS: hydrALAZINE 20 MG/ML VIAL SLOW IVP PRN (02:27)
[2018-12-19] MEDS: Acetaminophen 325 MG TAB PO PRN ×2 (02:30→07:59)
--- NOTE | 2018-12-19 06:28 | PDOC.FM ---
- Subjective Subjective: Pt states that her hip his hurting but she is feeling somewhat better. She states her headache is improved. She denies chest pain at this time. - Objective MAR Reviewed: Yes Vital Signs & Weight: Vital Signs (12 hours) Temp Pulse Resp BP Pulse Ox 12/19/18 04:00 98.1 F 64 16 146/66 H 94 L 12/19/18 02:27 60 12/19/18 00:00 180/79 H 12/18/18 20:00 98.1 F 60 20 171/73 H 95 Weight Weight 69.989 kg I&O: 12/17/18 12/18/18 12/19/18 06:59 06:59 06:59 Intake Total 1103.5 Output Total 0 Balance 1103.5 Result Diagrams: 12/17/18 22:57 12/17/18 22:57 Phys Exam - Physical Examination Constitutional: NAD HEENT: moist MMs Neck: no JVD Crackles in bases, fair air movement Cardiovascular: RRR, no significant murmur Gastrointestinal: soft, non-tender, no distention, positive bowel sounds Musculoskeletal: pulses present, edema present (mild) Neurological: moves all 4 limbs Psychiatric: A&O x 3 Skin: cap refill <2 seconds Dx/Plan (1) Hypertensive urgency Code(s): I16.0 - HYPERTENSIVE URGENCY Status: Acute (2) DM2 (diabetes mellitus, type 2) Status: Chronic Qualifiers: Diabetes mellitus complication status: with kidney complications Diabetes mellitus complication detail: with chronic kidney disease Qualified Code(s): E11.22 - Type 2 diabetes mellitus with diabetic chronic kidney disease (3) ESRD (end stage renal disease) on dialysis Code(s): N18.6 - END STAGE RENAL DISEASE; Z99.2 - DEPENDENCE ON RENAL DIALYSIS Status: Chronic (4) Hypertension Code(s): I10 - ESSENTIAL (PRIMARY) HYPERTENSION Status: Chronic Qualifiers: Hypertension type: essential hypertension Qualified Code(s): I10 - Essential (primary) hypertension - Plan Plan: 73 yo F w/ history of HTN and CHF admitted for: Hypertensive urgency -Continue amlodipine 10mg -Continue home atenolol -PRN hydalazine -Pt has been on clonidine in the past, due to noncompliance, would recommend discontinuing this medication due to rebound HTN -Pending Echo today, likely dc tomorrow pending clinical picture HFpEF, exacerbation POA -Pt will likely need fluid removed over time with dialysis -Pending echo to reevaluate cardiac function Elevated troponins -Appear at her baseline, no plans for stress at this time, likely demand ischemia from CHF/HTN Chronic end stage osteoarthritis -Pt his continuing to have pain in this hip ESRD on HD - electrolytes stable, received HD Wednesday. - Plan for HD Wednesday and HTN - as above COPD - takes combivent at home, will give dulera here - duoNebs prn Depression - continue sertraline T2DM - Continue home medications -Pt had some trouble with blood sugar yesterday, this is likely 2/2 changes in diet in the hospital -Will reevaluated pt's insulin needs with sliding scale today and tomorrow Physical deconditioning - PT/OT consult - Case mgmt for dispo Addendum - Attending - Attending Attestation Date/Time: 12/19/18 1203 I personally evaluated the patient and discussed the management with Dr. Glover. I agree with the History, Examination, Assessment and Plan documented above with any addition or exceptions noted below. The patient is c/o right hip pain. After discussion with the daughter the patient has complained of hip pain, bilaterally, for years. She fell ~ 2 weeks ago and had a CT pelvis which revealed no acute process. She has had no fall or trauma since then. On exam her R hip has no TTP and she allows me to range it significantly with no discomfort except in her right knee. I have low suspicion for a fx. Would have PT follow her and if any additional concerns or persistent symptoms would consider reimaging. Will continue antihypertensive tx for her hypertensive urgency.
[2018-12-19] MEDS ORDERED: HumaLOG 300 UNITS/3 ML VIAL SC PRN ×2 (06:34)
[2018-12-19] MEDS: Amlodipine 10 MG TAB PO SCH (07:58)
[2018-12-19] MEDS: Heparin 5,000 UNITS/ML VIAL SC SCH ×3 (07:58→20:05)
[2018-12-19] MEDS: Atenolol 50 MG TAB PO SCH (08:00)
[2018-12-19] MEDS: Aspirin 81 mg Enteric Coated Tablet PO SCH (08:00)
[2018-12-19] MEDS: Mometasone/Formoterol 120 PUFF INHALER INH SCH ×2 (08:15→19:31)
[2018-12-19] MEDS: Dextrose 10% in Water 1,000 ML IV SCH (10:42)
[2018-12-19] MEDS ORDERED: hydrALAZINE 10 MG TAB PO SCH (12:15)
[2018-12-19 13:40] VITALS: BMI 22.8
[2018-12-19] MEDS ORDERED: Calcium Carbonate 500 MG ChewTAB PO PRN (17:09)
[2018-12-19] MEDS: hydrALAZINE 10 MG TAB PO SCH (17:21)
[2018-12-20] MEDS: hydrALAZINE 10 MG TAB PO SCH ×5 (00:08→22:15)
[2018-12-20] MEDS: hydrALAZINE 20 MG/ML VIAL SLOW IVP PRN (04:14)
[2018-12-20] MEDS: Dextrose 10% in Water 1,000 ML IV SCH (04:20)
[2018-12-20] MEDS: Mometasone/Formoterol 120 PUFF INHALER INH SCH ×2 (07:29→18:34)
--- NOTE | 2018-12-20 07:35 | PDOC.FM ---
- Subjective Subjective: Pt's glucose has been in the 80-100s overnight requiring glucose drip. Nursing states she is eating poorly here. She continues to complain of her right hip. She states her breathing is a little worse this morning. - Objective MAR Reviewed: Yes Vital Signs & Weight: Vital Signs (12 hours) Temp Pulse Resp BP BP Pulse Ox 12/20/18 07:29 98.3 F 54 L 16 185/81 H 95 12/20/18 05:37 57 L 164/72 H 12/20/18 04:14 57 L 208/86 H 12/20/18 04:00 98.3 F 54 L 16 200/82 H 94 L 12/20/18 00:08 61 193/84 H 12/20/18 00:00 193/84 H 12/19/18 20:00 97.1 F L 61 20 153/67 H 96 Weight Admit Weight 66.542 kg Weight 71.305 kg I&O: 12/19/18 12/20/18 12/21/18 06:59 06:59 06:59 Intake Total 1103.5 650.5 Output Total 0 0 Balance 1103.5 650.5 Result Diagrams: 12/17/18 22:57 12/20/18 07:40 Phys Exam - Physical Examination Constitutional: NAD HEENT: moist MMs Neck: no JVD Crackles in bases, fair air movement Cardiovascular: RRR, no significant murmur Gastrointestinal: soft, non-tender, no distention, positive bowel sounds Musculoskeletal: no edema, pulses present Neurological: moves all 4 limbs Deviation from normal: Pt was refusing dialysis this AM but daughter consented her Skin: cap refill <2 seconds Dx/Plan (1) Hypertensive urgency Code(s): I16.0 - HYPERTENSIVE URGENCY Status: Acute (2) DM2 (diabetes mellitus, type 2) Status: Chronic Qualifiers: Diabetes mellitus complication status: with kidney complications Diabetes mellitus complication detail: with chronic kidney disease Qualified Code(s): E11.22 - Type 2 diabetes mellitus with diabetic chronic kidney disease (3) ESRD (end stage renal disease) on dialysis Code(s): N18.6 - END STAGE RENAL DISEASE; Z99.2 - DEPENDENCE ON RENAL DIALYSIS Status: Chronic (4) Hypertension Code(s): I10 - ESSENTIAL (PRIMARY) HYPERTENSION Status: Chronic Qualifiers: Hypertension type: essential hypertension Qualified Code(s): I10 - Essential (primary) hypertension - Plan Plan: 73 yo F w/ history of HTN and CHF admitted for: Hypertensive urgency -Continue amlodipine 10mg -Continue home atenolol -Titrating up PO hydralazine -PRN hydalazine -Pt has been on clonidine in the past, due to noncompliance, would recommend discontinuing this medication due to rebound HTN -Pending Echo read, likely dc today/tomorrow pending clinical picture HFpEF, exacerbation POA -Pt will likely need fluid removed over time with dialysis -Pending echo to reevaluate cardiac function Elevated troponins -Appear at her baseline, no plans for stress at this time, likely demand ischemia from CHF/HTN Chronic end stage osteoarthritis -Pt his continuing to have pain in this hip ESRD on HD - electrolytes stable, received HD Wednesday. - Plan for HD today -Will consult Dr. Bedolla for dialysis today HTN - as above COPD - takes combivent at home, will give dulera here - duoNebs prn Depression - continue sertraline T2DM -Pt has been on glucose drip overnight due to low BG. This is likely 2/2 her 70/ 30 insulin and poor diet in the hospital -This insulin will likely dialyze out. If pt continues to be low, I will give 1mg of glucagon as to decrease the fluids she is recieving as well as change her Q2hr glucose checks to Q4hr Physical deconditioning - PT/OT consult - Case mgmt for dispo Addendum - Attending - Attending Attestation Date/Time: 12/20/18 [id number] I personally evaluated the patient and discussed the management with Dr. Glover. I agree with the History, Examination, Assessment and Plan documented above with any addition or exceptions noted below. Restart minoxidil. Continue other antihypertensives. Dialysis today. Decrease insulin.
[2018-12-20 08:13] LABS: Anion Gap 11 mmol/L (10-20); BUN (Urea Nitrogen) 34 mg/dL (9.8-20.1); Calc. Creatinine Clearance 7 mL/min (70-130); Carbon Dioxide 32 mmol/L (23-31); Chloride 92 mmol/L (98-107); Estimated GFR-MDRD 6; Glucose 93 mg/dL (83-110); Potassium 4.4 mmol/L (3.5-5.1); Sodium 131 mmol/L (136-145)
--- NOTE | 2018-12-20 09:25 | PRG ---
DATE OF SERVICE: 12/20/2018 SUBJECTIVE: Ms. Fierro is a 73-year-old black female with ESRD from hypertensive nephropathy and was admitted due to labile hypertension. She initially presented to the ER, complaining of right hip joint pain. However, blood pressure was noted to be elevated and she was admitted for better BP control. This morning, she voices no new complaints. REVIEW OF SYSTEMS: No chest pain or shortness of breath. Positive for chronic right hip joint pain. Positive for increased forgetfulness. No nausea. No vomiting. No diarrhea. No productive cough. No fever or chills. No syncopal episode. No dysuria. No urinary frequency. Appetite and energy level are fair. HOME MEDICATIONS: Included the following; 1. Sertraline 50 mg daily. 2. Proventil two puffs q.i.d. as needed. 3. Humulin 70/30 at 30 units subcutaneous daily. 4. Atenolol 50 mg daily. 5. Clonidine 0.1 mg q.8 p.r.n. 6. Amlodipine 10 mg tablet once a day. 7. Minoxidil 2.5 mg four tablets nightly. 8. Reglan 10 mg q.6 p.r.n. 9. Renvela 800 mg p.o. t.i.d. 10. Hydralazine 75 mg q.8 p.r.n. 11. Tramadol 50 mg p.o. b.i.d. PAST MEDICAL HISTORY: 1. ESRD from hypertensive nephropathy. 2. Longstanding hypertension. 3. Type 2 diabetes mellitus. 4. COPD. 5. Early dementia. 6. Status post seizure disorder. PAST SURGICAL HISTORY: 1. Status post AV fistula placement. 2. Status post cuffed hemodialysis catheter placement. SOCIAL HISTORY: The patient lives with one of her children. She lives in [place]. Smoked for 20 years, 1 pack a day, currently not smoking. No alcohol use. No IV drug abuse. No blood transfusion. 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 Sedentary lifestyle. ALLERGIES: SULFA. TRAUMA: None. IMMUNIZATIONS: Up to date. HOSPITALIZATIONS: Please see past medical history. FAMILY HISTORY: No family history of ESRD. PHYSICAL EXAMINATION: VITAL SIGNS: Blood pressure is 185/81, heart rate 54, respiratory rate 16, temperature 98.3, and pulse ox 95%. GENERAL: Noted to be awake, alert, occasionally confused, but not in distress. SKIN: Adequate turgor. HEENT: Pinkish conjunctivae. Anicteric sclerae. NECK: No neck mass. No carotid bruits. No JVD. CHEST: No deformities. LUNGS: Clear breath sounds. No wheezing. No crackles. HEART: Normal sinus rhythm. No murmur. No gallops. No rubs. ABDOMEN: Globular, soft, nontender. No masses. EXTREMITIES: No edema. No deformities. NEUROLOGIC: The patient is awake, occasionally confused, moving all extremities. No tremors. No asterixis. LABORATORY STUDIES: On 12/18/2018, x-ray of the hip joint showed no acute fracture noted; however, there was finding of very severe osteoarthrosis of the left hip. ASSESSMENT AND PLAN: 1. Bilateral hip joint supportive care, p.r.n. pain medication. 2. End-stage renal disease, stable. Review of the last Kt/V suggests she is adequately dialyzed with the current dialysis regimen. She is scheduled for dialysis today. Fluid removal as tolerated by the patient. 3. Labile hypertension. Continue current BP medications. At the same time, we will probably need to resume back her minoxidil at least at 5 mg tablet q.a.m. 4. Overall agree with current management. Job ID: [id number]
[2018-12-20 11:20] LABS: HBSAg Index 0.14 S/CO (0-0.99); Hep B Surf Ag Non-Reactive S/CO (NonReactive)
[2018-12-20] MEDS: Amlodipine 10 MG TAB PO SCH (13:13)
[2018-12-20] MEDS: Aspirin 81 mg Enteric Coated Tablet PO SCH (13:14)
[2018-12-20] MEDS: Atenolol 50 MG TAB PO SCH (13:14)
[2018-12-20] MEDS: Heparin 5,000 UNITS/ML VIAL SC SCH ×3 (13:14→22:03)
[2018-12-20] MEDS: traMADol HCl 50 MG TAB PO PRN (13:18)
[2018-12-20] MEDS ORDERED: Sterile Water 10 ML VIAL FS PRN (13:58)
[2018-12-20] MEDS ORDERED: Dextrose 50% Abboject 50 ML SYRINGE SLOW IVP SCH (14:00)
[2018-12-20] MEDS: PROVENTIL INHALER 6.7 G (200 INHALATIONS) INH PRN (14:09)
[2018-12-20] MEDS ORDERED: Terazosin HCl 1 MG CAP PO SCH ×2 (16:30→21:00)
[2018-12-20] MEDS ORDERED: Minoxidil 2.5 MG TAB PO SCH (21:00)
[2018-12-21] MEDS: hydrALAZINE 10 MG TAB PO SCH ×4 (04:12→12:16)
--- NOTE | 2018-12-21 05:44 | PDOC.FM ---
- Subjective Subjective: Pt reports she has some nausea this morning. She denies chest pain, SOB, dizziness, light headedness, or abdominal pain. - Objective MAR Reviewed: Yes Vital Signs & Weight: Vital Signs (12 hours) Temp Pulse Resp BP BP Pulse Ox 12/21/18 04:12 58 L 155/82 H 12/21/18 04:00 99 F 58 L 18 155/89 H 100 12/20/18 23:52 58 L 160/69 H 12/20/18 22:15 82 151/68 H 12/20/18 20:00 97 12/20/18 18:34 82 20 95 Weight Admit Weight 66.542 kg Weight 71.305 kg I&O: 12/19/18 12/20/18 12/21/18 06:59 06:59 06:59 Intake Total 1103.5 650.5 Output Total 0 0 Balance 1103.5 650.5 Result Diagrams: 12/17/18 22:57 12/20/18 07:40 Phys Exam - Physical Examination Constitutional: NAD HEENT: moist MMs Neck: no JVD Respiratory: no wheezing, no rales mild crackles at bases Cardiovascular: RRR 2/6 systolic murmur Gastrointestinal: soft, non-tender, no distention, positive bowel sounds Musculoskeletal: no edema, pulses present Neurological: moves all 4 limbs Psychiatric: A&O x 3 Skin: cap refill <2 seconds Dx/Plan (1) Hypertensive urgency Code(s): I16.0 - HYPERTENSIVE URGENCY Status: Acute (2) DM2 (diabetes mellitus, type 2) Status: Chronic Qualifiers: Diabetes mellitus complication status: with kidney complications Diabetes mellitus complication detail: with chronic kidney disease Qualified Code(s): E11.22 - Type 2 diabetes mellitus with diabetic chronic kidney disease (3) ESRD (end stage renal disease) on dialysis Code(s): N18.6 - END STAGE RENAL DISEASE; Z99.2 - DEPENDENCE ON RENAL DIALYSIS Status: Chronic (4) Hypertension Code(s): I10 - ESSENTIAL (PRIMARY) HYPERTENSION Status: Chronic Qualifiers: Hypertension type: essential hypertension Qualified Code(s): I10 - Essential (primary) hypertension - Plan Plan: 73 yo F w/ history of HTN and CHF admitted for: Hypertensive urgency -Continue amlodipine 10mg -Continue home atenolol -Titrating up PO hydralazine -PO hytrin overnight for improved control, will plan to discontinue prior to discharge -PRN hydalazine -Pt has been on clonidine in the past, due to noncompliance, would recommend discontinuing this medication due to rebound HTN -Echo shows EF >60-65% and diastolic dysfunction, likely dc today/tomorrow pending clinical picture HFpEF, exacerbation POA -Pt will likely need fluid removed over time with dialysis -Echo shows EF >60-65% and diastolic dysfunction Elevated troponins -Appear at her baseline, no plans for stress at this time, likely demand ischemia from CHF/HTN Chronic end stage osteoarthritis -Pt his continuing to have pain in this hip ESRD on HD - electrolytes stable, received HD Wednesday. - Plan for HD today -Will consult Dr. Bedolla for dialysis today HTN - as above COPD - takes combivent at home, will give dulera here - duoNebs prn Depression - continue sertraline T2DM -Pt has had been struggling with low blood glucose during this hospital stay, likely 2/2 her 70/30 dose retaining some activity despite dialysis. Will continue to monitor and treat with D50 vs other solutions to minimize additional free water in this ESRD pt Physical deconditioning - PT/OT consult - Case mgmt for dispo Addendum - Attending - Attending Attestation Date/Time: 12/21/18 1233 I personally evaluated the patient and discussed the management with Dr. Glover. I agree with the History, Examination, Assessment and Plan documented above with any addition or exceptions noted below. Doing well this AM. Plan for dc today and follow up with PCP within a week for BP check and Dr. Bedolla as scheduled. Dr. Bedolla says she is about where she normally concerning her blood pressure.
[2018-12-21] MEDS: traMADol HCl 50 MG TAB PO PRN (06:26)
[2018-12-21] MEDS: Mometasone/Formoterol 120 PUFF INHALER INH SCH (07:51)
[2018-12-21] MEDS: Amlodipine 10 MG TAB PO SCH (08:46)
[2018-12-21] MEDS: Atenolol 50 MG TAB PO SCH (08:47)
[2018-12-21] MEDS: Heparin 5,000 UNITS/ML VIAL SC SCH ×2 (08:47→14:53)
[2018-12-21] MEDS: Aspirin 81 mg Enteric Coated Tablet PO SCH (08:47)
--- NOTE | 2018-12-21 09:26 | PRG ---
DATE OF SERVICE: 12/21/2018 SUBJECTIVE: Ms. Fierro is a 73-year-old black female, who was admitted for labile hypertension. Blood pressure is now much improved. She underwent hemodialysis without any difficulty yesterday. Currently, the patient denies any new complaints except for some nausea. She denies any chest pain or shortness of breath. OBJECTIVE: VITAL SIGNS: Blood pressure 167/72, heart rate 54, respiratory rate 15, temperature 97.6, and pulse ox 99%. GENERAL: Awake, alert, comfortable, and not in distress. SKIN: Adequate turgor. HEENT: Pinkish conjunctivae. Anicteric sclerae. No neck mass. No carotid bruits. No JVD. CHEST: No deformities. LUNGS: Clear breath sounds. No wheezing. No crackles. HEART: Normal sinus rhythm. No murmurs. No gallops. No rubs. ABDOMEN: Globular, soft, and nontender. No masses. EXTREMITIES: No edema. No deformities. MEDICATIONS: Medications of December 21, 2018, were reviewed. LABORATORY DATA: Laboratories of December 17, 2018: Hemoglobin 12.2. December 21, 2018, glucose 95. December 20, 2018, potassium 4.4, BUN 34, and creatinine 7.4. ASSESSMENT AND PLAN: 1. Labile hypertension, much improved. Continue supportive care. Continue current antihypertensive regimen. 2. End-stage renal disease, stable. Tolerated hemodialysis. Continuing 3 times a week hemodialysis. Again, fluid removal only as tolerated. 3. Overall agree with current management. Job ID: [id number]
[2018-12-21 15:59] VITALS: BP 151/70; TEMP 97.8
--- NOTE | 2018-12-22 12:12 | DIS ---
DATE OF ADMISSION: 12/18/2018 DATE OF DISCHARGE: 12/21/2018 ADMITTING ATTENDING: Leigh Ann Reddy MD DISCHARGE ATTENDING: Maykel Castro MD. RESIDENT: Helder Glover DO CONSULTS: Dr. Nash Bedolla, Nephrology. PROCEDURES: 1. On 12/18, hip left 2-3 view. No acute fracture identified. Very severe osteoarthritis of the left hip, probably sequela of longstanding chronic hip congenital dislocation with pseudoarthritis, osteopenia, and anatomic distortion caused by the above changes. 2. Pelvis AP standard x-ray, large osseous excrescence at the right lateral antecubital roof either osteophyte or large enthesophyte. No major pathologic findings of the right hip identified. Very severe osteoarthritis of the left hip. 3. Venous Doppler of the right showing no deep vein thrombosis. Some right leg edema. 4. Chest x-ray portable shows cardiomegaly, prominence of the pulmonary vasculature, obscuration of the medial left hemidiaphragm reflects basilar pleural parenchymal opacities. 5. Brain CT without contrast showing no evidence of mass producing intracranial hemorrhage. 6. Echocardiogram showed EF estimated greater than 60% to 65% with left ventricular hypertrophy and diastolic dysfunction. Normal right ventricular size and function. Right ventricular hypertrophy. Estimated right ventricular systolic pressure is 54 mmHg. PRIMARY DIAGNOSES: 1. Hypertensive urgency likely secondary to medication noncompliance, congestive heart failure exacerbation, diastolic dysfunction. 2. Elevated troponins, likely due to demand and end-stage renal disease. SECONDARY DIAGNOSES: 1. End-stage renal disease, on hemodialysis Wednesday, , Wednesday. 2. Hypertension, chronic obstructive pulmonary disease, depression, type 2 diabetes, physical deconditioning, left hip osteoarthritis. DISCHARGE MEDICATIONS: 1. Hydralazine 40 mg p.o. q.6 hours. 2. Terazosin 1 mg p.o. at bedtime. 3. Minoxidil p.o. at bedtime. 4. Albuterol sulfate two puffs q.i.d. p.r.n. shortness of breath or wheezing. 5. Amlodipine 10 mg p.o. daily. 6. Aspirin 81 mg p.o. daily. 7. Atenolol 50 mg p.o. daily. 8. Humalog 70/30, this was discontinued due to hypoglycemia. 9. Reglan 10 mg p.o. q.6 hours p.r.n. headache. 10. Sertraline 50 mg p.o. daily. 11. Renvela 800 mg p.o. t.i.d. 12. Tramadol 50 mg p.o. b.i.d. DISCONTINUED MEDICATIONS: 1. Humulin 70/30, discontinued due to hypoglycemia. 2. Clonidine discontinued due to rebound hypertension risk and noncompliance. BRIEF HISTORY OF PRESENT ILLNESS/HOSPITAL COURSE: This is a 73-year-old female with past medical history as above, who presented with hip pain and bad headache. The patient is found to have chronic hip arthritis. The patient states that the pain started 1 to 2 days prior to admission, worsened the day of admission. The patient gets around with a push walker. On admission, the patient's blood pressure was 225/102. The patient was admitted to the hospital with attempts to manage her blood pressure. We have difficulty managing blood pressure likely due to clonidine in her system. When the patient's blood pressure was not responsive, we added hydralazine as well as Hytrin to try to attempt to decrease blood pressure. The patient required dialysis during her hospitalization. Dr. Bedolla was consulted for that. DISPOSITION: Stable. DISCHARGE INSTRUCTIONS: 1. Location: Home with home health and PT. 2. Diet: Heart healthy and diabetic. 3. Activity: As tolerated. 4. Follow up with PCP, Dr. Llanes in [address] Bedolla as instructed. Job ID: [id number]
== END 2018-12-21 16:55 | disposition home health service (06) | DRG 304 ==
LOC: ERS 22:27 → 2NO 12-18 00:47
PROVIDERS: ADMIT Family Medicine; ATTEND Family Medicine
PROC: 5A1D70Z Performance of Urinary Filtration, Intermittent, Less than 6 Hours Per Day (ICD-10-PCS; principal; 2018-12-18)
DX: I16.1 Hypertensive emergency (principal); N18.6 End stage renal disease; I50.31 Acute diastolic (congestive) heart failure; I24.8 Other forms of acute ischemic heart disease; I13.2 Hypertensive heart and chronic kidney disease with heart failure and with stage 5 chronic kidney disease, or end stage renal disease; J44.9 Chronic obstructive pulmonary disease, unspecified; E11.22 Type 2 diabetes mellitus with diabetic chronic kidney disease; G40.909 Epilepsy, unspecified, not intractable, without status epilepticus; F32.9 Major depressive disorder, single episode, unspecified; R53.81 Other malaise; M16.11 Unilateral primary osteoarthritis, right hip; Z99.2 Dependence on renal dialysis; Z79.899 Other long term (current) drug therapy; Z98.51 Tubal ligation status; Z87.891 Personal history of nicotine dependence; Z91.14 Patient's other noncompliance with medication regimen
CPT/HCPCS: 36415; 36416; 70450; 71045; 72170; 80048; 80053; 82553; 83880; 84484; 85025; 87340; 93005; 93306; 93798; 94640; 96374; 96375; 96376; J0360; J1644; J1815; J1940; J2270; J7620

== ENCOUNTER 2019-01-07 11:40 | Observation (INO) | payer MEDICARE, MEDICAID ==
[2019-01-07 13:04] LABS: #Eosinphils 0.1 thou/uL (0.0-0.7); #Lymphocytes 0.6 thou/uL (1.20-3.40); #Monocytes 0.5 thou/uL (0.11-0.59); #Neutrophils 5.4 thou/uL (1.40-6.50); %Eosinophils 1.5 % (0.0-10.0); %Lymphocytes 9.4 % (21.0-51.0); %Monocytes 7.7 % (0.0-10.0); %Neutrophils 81.3 % (42.0-75.0); Hemoglobin 11.8 g/dL (12.0-16.0); Mean Corpuscular HGB CONC 31.9 g/dL (32.0-36.0); Mean Platelet Volume 9.3 fL (7.4-10.4); Platelet Count 214 thou/uL (130-400); RBC Distribution Width 14.4 % (11.5-14.5); Red Blood Cell (RBC) Count 4.06 mill/uL (4.20-5.40); White Blood Cell (WBC) Count 6.7 thou/uL (4.8-10.8)
[2019-01-07 13:27] LABS: ALT (SGPT) Less than 7 U/L (8-55); AST (SGOT) 15 U/L (5-34); Albumin 3.6 g/dL (3.4-4.8); Alkaline Phosphatase 82 U/L (40-110); Anion Gap 14 mmol/L (10-20); BUN (Urea Nitrogen) 32 mg/dL (9.8-20.1); Bilirubin, Total 0.6 mg/dL (0.2-1.2); Calc. Creatinine Clearance 0 mL/min (70-130); Calcium 9.4 mg/dL (7.8-10.44); Carbon Dioxide 31 mmol/L (23-31); Chloride 93 mmol/L (98-107); Estimated GFR-MDRD 7; Glucose 84 mg/dL (83-110); Lipase 41 U/L (8-78); Potassium 3.4 mmol/L (3.5-5.1); Protein, Total 7.6 g/dL (6.0-8.3); Sodium 135 mmol/L (136-145)
[2019-01-07 13:49] LABS: CKMB 4.4 ng/mL (0-6.6)
--- NOTE | 2019-01-07 14:05 | CT ---
CT OF THE ABDOMEN AND PELVIS WITHOUT IV CONTRAST: INDICATION: A 73-year-old female with abdominal pain and hypoglycemia. COMPARISON: Prior CT of the abdomen and pelvis without contrast from [facility] 10/22/2018 and a cont rast-enhanced CT of the abdomen and pelvis dated 11/04/2017. FINDINGS: There is moderate bilateral pleural effusions and bibasilar atelectasis. There is mild cardiomegaly. There is fluid distention in the esophagus. There is marked distention of the stomach filled with fl uid and gas suspicious for other prominent gastroparesis. There is fluid and gas present within the small and large bowel which are normal caliber. A normal appendix is seen within the right lower antony drant. There is moderate anasarca. Mixed hypodensities and hyperdensities involving the left and right kidney are similar appearing. Th e right adrenal lesion measuring 2.5 cm is stable. Prominent vascular calcification is stable. There is layered density within the gallbladder. There is a stable fibroid uterus. The visualized bladder is unremarkable-appearing. Advanced left hip osteoarthrosis is similar-appearing. Moderate to severe right hip osteoarthrosis i s similar appearing. Scattered degenerative change of the visualized thoracolumbar spine is similar appearing. No acute osseous abnormality is evident. IMPRESSION: 1. Moderate bilateral pleural effusions and bibasilar atelectasis with mild anasarca. 2. Marked distention of the stomach may reflect the sequelae of gastroparesis as there is fluid and gas within the small and large bowel. 3. Gallbladder sludge. 4. Bilateral renal lesions are stable. There is an exophytic hyperdense lesion measuring 2.5 cm off the posterior aspect of the superior pole left kidney that is stable and may reflect a mildly comple x cyst. Renal ultrasound followup is recommended. 5. Stable right adrenal mass lesion incompletely characterized. 6. Fibroid uterus. 7. Other chronic findings as well. POS: CET
--- NOTE | 2019-01-07 14:16 | RAD ---
CHEST 1 VIEW: INDICATION: Dyspnea. COMPARISON: Prior exam dated 12/17/2018. IMPRESSION: Cardiomegaly with pulmonary vascular congestion and bilateral pleural effusions. There is airspace o pacity within the left lower lobe suspicious for atelectasis. No acute osseous abnormality is eviden t. POS: CET
--- NOTE | 2019-01-07 14:35 | PDOC.FPRHP ---
- History of Present Illness Chief Complaint: Hypoglycemia History of Present Illness: 73 y/o F with a PMHx of ESRD on HD, DM II insulin dependent, and asthma presents to ED via EMS. EMS was called by family when they noticed pt not "feeling her usual self." Her glucose was 20 upon arrival. Given D10 and brought directly to ED. Pt was diaphoretic, SOB, confused, had nausea, and felt weak. At time of evaluation pt denies diaphoresis, CP, SOB. Pt c/o sever nausea and vomiting. Pt had just vomited in ED. C/O abd pain. Pt denies light headedness. Pt states she usually takes 30-35 units of 70/30 insulin nightly. States her last dose on insulin was last night and 20 units. She reports to other resident not taking insulin in X2 days. - Allergies/Adverse Reactions Allergies Allergy/AdvReac Type Severity Reaction Status Date / Time Sulfa (Sulfonamide Allergy Verified 12/18/18 03:23 Antibiotics) - Home Medications Medication Instructions Recorded Confirmed Type Sertraline HCl [Zoloft] 50 mg PO DAILY 11/02/17 12/18/18 History Albuterol Sulfate HFA (OR) 2 puff INH QID PRN #1 inh 11/03/17 12/18/18 Rx [Proventil Hfa (or)] Metoclopramide HCl [Reglan] 10 mg PO Q6HR PRN 12/18/18 12/18/18 History Sevelamer Carbonate [Renvela] 800 mg PO TID-WM 12/18/18 12/18/18 History hydrALAZINE [Apresoline] 75 mg PO Q8HR PRN 12/18/18 12/18/18 History Aspirin [Ecotrin Low Strength] 81 mg PO DAILY tab 12/21/18 Rx Terazosin HCl [Hytrin] 1 mg PO HS #30 cap 12/21/18 Rx hydrALAZINE [Apresoline] 40 mg PO Q6H #120 tab 12/21/18 Rx - History PMHx: ESRD on HD, DM II, HTN, Asthma PSHx: BTL FHx: Father stomach cancer Social: dips tobaccos, denies smoking cigarettes or etoh. - Review of Systems General: reports: night sweats, fatigue. denies: fever/chills Respiratory: reports: shortness of breath. denies: cough, exercise intolerance Cardiovascular: reports: palpitation, edema. denies: chest pain Gastrointestinal: reports: nausea, vomiting, abdominal pain. denies: diarrhea Skin: denies: rashes Neurological: reports: weakness. denies: syncope - Vital signs BP: 183/87 HR: 70 RR: 19 Tmax: 98 Pox: 94% on RA Wt: 71 - Physical Exam -Constitutional: awake, drowsy HEENT: normocephalic and atraumatic, PERRLA, conjunctiva clear, grossly normal hearing, MMM -HEENT: poor dentition Scleral icterus Neck: supple, FROM, no JVD Chest: no-tender to palpation Heart: RRR, pulses present -Heart: 3/6 systolic murmur BLE pitting edema Lungs: CTAB, no respiratory distress, good air movement, no rales/rhonchi, no wheezing, no retractions Abdomen: soft, non-tender, bowel sounds present -Abdomen: distended abdomen Musculoskeletal: normal structure, normal tone Neurological: no focal deficit, CN II-XII intact, normal sensation Skin: no rash/lesions, good turgor, capillary refill <2 seconds Heme/Lymphatic: no unusual bruising or bleeding, no purpura, no petechia, no LAD FMR H&P: Results - Labs Result Diagrams: 01/09/19 06:31 01/09/19 04:04 Lab results: WBC 6.7 thou/uL (4.8-10.8) 01/07/19 12:52 Hgb 11.8 g/dL (12.0-16.0) L 01/07/19 12:52 Hct 37.0 % (36.0-47.0) 01/07/19 12:52 MCV 91.0 fL (78.0-98.0) 01/07/19 12:52 Plt Count 214 thou/uL (130-400) 01/07/19 12:52 Neutrophils % 81.3 % (42.0-75.0) H 01/07/19 12:52 Sodium 135 mmol/L (136-145) L 01/07/19 12:52 Potassium 3.4 mmol/L (3.5-5.1) L 01/07/19 12:52 Chloride 93 mmol/L (98-107) L 01/07/19 12:52 Carbon Dioxide 31 mmol/L (23-31) 01/07/19 12:52 BUN 32 mg/dL (9.8-20.1) H 01/07/19 12:52 Creatinine 7.17 mg/dL (0.6-1.1) H 01/07/19 12:52 Glucose 84 mg/dL (83-110) 01/07/19 12:52 Calcium 9.4 mg/dL (7.8-10.44) 01/07/19 12:52 Total Bilirubin 0.6 mg/dL (0.2-1.2) 01/07/19 12:52 AST 15 U/L (5-34) 01/07/19 12:52 ALT Less than 7 U/L (8-55) L 01/07/19 12:52 Alkaline Phosphatase 82 U/L (40-110) 01/07/19 12:52 CK-MB (CK-2) 4.4 ng/mL (0-6.6) 01/07/19 12:52 Serum Total Protein 7.6 g/dL (6.0-8.3) 01/07/19 12:52 Albumin 3.6 g/dL (3.4-4.8) 01/07/19 12:52 Lipase 41 U/L (8-78) 01/07/19 12:52 - Radiology Interpretation CT scan - abdomen Status: report reviewed by me (evidence of gastroparesis with marked distention of stomach.) FMR H&P: A/P - Problem List (1) Hypoglycemia Status: Acute Code(s): E16.2 - HYPOGLYCEMIA, UNSPECIFIED (2) Intractable nausea and vomiting Status: Acute Code(s): R11.2 - NAUSEA WITH VOMITING, UNSPECIFIED (3) DM2 (diabetes mellitus, type 2) Status: Chronic Qualifiers: Diabetes mellitus complication status: with kidney complications Diabetes mellitus complication detail: with chronic kidney disease Qualified Code(s): E11.22 - Type 2 diabetes mellitus with diabetic chronic kidney disease (4) ESRD (end stage renal disease) on dialysis Status: Chronic Code(s): N18.6 - END STAGE RENAL DISEASE; Z99.2 - DEPENDENCE ON RENAL DIALYSIS (5) Hypertension Status: Chronic Code(s): I10 - ESSENTIAL (PRIMARY) HYPERTENSION Qualifiers: Hypertension type: essential hypertension Qualified Code(s): I10 - Essential (primary) hypertension (6) Systolic murmur Status: Chronic Code(s): I38 - ENDOCARDITIS, VALVE UNSPECIFIED - Plan 73 y/o F admitted for hypoglycemia and gastroparesis 1. Hypoglycemia - Glucose 20's upon EMS arrival - Q2H acuchecks - Recommend no further hypoglycemic medications at this time. - Consider D5 is glucose drops again overnight. 2. ESRD on HD - Dr. Bedolla, consulted - Plan to resume HD schedule 3. Abdominal distention most likely 2/2 Gastroparesis - recommending NG tube - Consider further workup if not improved by AM. 4. Hx of DM II - Holding home meds while hypoglycemic 5. Hx of HTN - resume home meds 6. Hx of [place] - Consider duonebs if symptomatic 7. Systolic Murmur - Present previously - Most likely y2/2 long standing HTN PCP: Mario Alberto CODE STATUS: FULL CODE DVT ppx: heparin Diet: NPo, advance as tolerated to clears. Disposition: Stable. Will admit for further evaluation and treatment. FMR H&P: Upper Level - Pertinent history 73 yo female with known ESRD presents for evaluation of hypoglycemia. Patient was seen and evaluated at outside ED yesterday for similar condition. Today, upon initial evaluation BG 20. Please see research program intern note above for further information. - Plan Date/Time: 01/07/19 1435 I, Malick Ramey MD, have evaluated this patient and agree with findings/ plan as outlined by research program intern resident. Pertinent changes/additions are listed here. 1. Hypoglycemia - Unknown etiology as patient reports no insulin use - Q2H glucose checks until stabilized - Recommend no further hypoglycemic medications 2. ESRD on HD - Dr. Bedolla, consulted - Plan to resume HD schedule 3. Abdominal distention - Gastric outlet obstruction vs Gastroparesis - NG tube ordered - Consider further workup if not improved All other chronic conditions reviewed and home medications will be restarted as appropriate. PCP: Mario Alberto CODE STATUS: FULL CODE Disposition: Stable, overall prognosis poor. Will admit for further evaluation and treatment. Addendum - Attending - Attending Attestation Date/Time: 01/10/19 0810 I personally evaluated the patient and discussed the management with Dr. Burnett at time of admission. I agree with the History, Examination, Assessment and Plan documented above with any addition or exceptions noted below.
[2019-01-07] MEDS ORDERED: Dextrose 50% Abboject 50 ML SYRINGE ONE (14:59)
[2019-01-07] MEDS ORDERED: Ondansetron PF 4 MG/2 ML Vial ONE (14:59)
[2019-01-07] MEDS ORDERED: Ondansetron PF 4 MG/2 ML Vial IVP PRN (15:31)
[2019-01-07] MEDS ORDERED: Ondansetron ODT 4 MG TAB PO PRN (15:31)
[2019-01-07] MEDS ORDERED: Dextrose 5% in Water 1,000 ML IV PRN (15:35)
[2019-01-07] MEDS ORDERED: Dextrose 50% Abboject 50 ML SYRINGE SLOW IVP PRN (15:35)
[2019-01-07 16:55] VITALS: BMI 23.1
[2019-01-07 17:12] LABS: Troponin I 0.023 ng/mL (< 0.028)
[2019-01-07 19:24] LABS: Troponin I 0.034 ng/mL (< 0.028)
[2019-01-07] MEDS: Heparin 5,000 UNITS/ML VIAL SC SCH (20:37)
[2019-01-08 04:20] LABS: #Eosinphils 0.2 thou/uL (0.0-0.7); #Monocytes 0.4 thou/uL (0.11-0.59); #Neutrophils 3.4 thou/uL (1.40-6.50); %Eosinophils 3.5 % (0.0-10.0); %Lymphocytes 20.6 % (21.0-51.0); %Monocytes 8.3 % (0.0-10.0); %Neutrophils 67.7 % (42.0-75.0); Hemoglobin 8.9 g/dL (12.0-16.0); Mean Corpuscular HGB CONC 32.1 g/dL (32.0-36.0); Mean Corpuscular Hemoglobin 29.1 pg (27.0-31.0); Mean Corpuscular Volume 90.9 fL (78.0-98.0); Mean Platelet Volume 9.7 fL (7.4-10.4); Platelet Count 180 thou/uL (130-400); RBC Distribution Width 14.3 % (11.5-14.5); Red Blood Cell (RBC) Count 3.05 mill/uL (4.20-5.40)
[2019-01-08 04:52] LABS: ALT (SGPT) 7 U/L (8-55); AST (SGOT) 12 U/L (5-34); Albumin 2.7 g/dL (3.4-4.8); Alkaline Phosphatase 57 U/L (40-110); Anion Gap 12 mmol/L (10-20); BUN (Urea Nitrogen) 37 mg/dL (9.8-20.1); Bilirubin, Total 0.5 mg/dL (0.2-1.2); Calc. Creatinine Clearance 7 mL/min (70-130); Calcium 8.2 mg/dL (7.8-10.44); Carbon Dioxide 33 mmol/L (23-31); Chloride 95 mmol/L (98-107); Estimated GFR-MDRD 6; Globulin 2.9 g/dL (2.4-3.5); Glucose 47 mg/dL (83-110); Potassium 3.6 mmol/L (3.5-5.1); Protein, Total 5.6 g/dL (6.0-8.3); Sodium 136 mmol/L (136-145)
--- NOTE | 2019-01-08 06:14 | PDOC.FM ---
- Subjective Subjective: Overnight, patient's glucose as low as 47 and given an amp of D50 which increased glucose. Patient resting comfortably in bed this AM. No complaints or concerns. Denies any lightheadedness, dizziness, NVD, chest pain, abdominal pain. - Objective MAR Reviewed: Yes Vital Signs & Weight: Vital Signs (12 hours) Temp Pulse Resp BP BP Pulse Ox 01/08/19 04:00 98.2 F 60 23 H 137/51 L 97 01/07/19 20:00 96 01/07/19 19:45 98.5 F 63 15 108/62 96 01/07/19 19:15 98.5 F 63 14 108/62 96 Weight Weight 70.76 kg I&O: 01/06/19 01/07/19 01/08/19 06:59 06:59 06:59 Intake Total 240 Balance 240 Result Diagrams: 01/08/19 03:48 01/08/19 03:48 Phys Exam - Physical Examination Constitutional: NAD HEENT: moist MMs, sclera anicteric Neck: supple Respiratory: clear to auscultation bilateral Cardiovascular: RRR 3/6 systolic murmur over aorta Gastrointestinal: soft, non-tender, no distention, positive bowel sounds Musculoskeletal: no edema Neurological: non-focal, moves all 4 limbs Psychiatric: normal affect Skin: no rash, normal turgor Dx/Plan (1) Hypoglycemia Code(s): E16.2 - HYPOGLYCEMIA, UNSPECIFIED Status: Acute (2) Intractable nausea and vomiting Code(s): R11.2 - NAUSEA WITH VOMITING, UNSPECIFIED Status: Acute (3) DM2 (diabetes mellitus, type 2) Status: Chronic Qualifiers: Diabetes mellitus complication status: with kidney complications Diabetes mellitus complication detail: with chronic kidney disease Qualified Code(s): E11.22 - Type 2 diabetes mellitus with diabetic chronic kidney disease (4) ESRD (end stage renal disease) on dialysis Code(s): N18.6 - END STAGE RENAL DISEASE; Z99.2 - DEPENDENCE ON RENAL DIALYSIS Status: Chronic (5) Hypertension Code(s): I10 - ESSENTIAL (PRIMARY) HYPERTENSION Status: Chronic Qualifiers: Hypertension type: essential hypertension Qualified Code(s): I10 - Essential (primary) hypertension (6) Systolic murmur Code(s): I38 - ENDOCARDITIS, VALVE UNSPECIFIED Status: Chronic (7) Hyperkalemia Code(s): E87.5 - HYPERKALEMIA Status: Acute - Plan Plan: #Hypoglycemia Unknown etiology as patient reports no insulin use - however patient did tell another member of the resident team that she had used insulin prior to arrival. Possibly due to medications and kidney disease. - Q2H glucose checks until stabilized. - Recommend no further hypoglycemic medications - Cortisol, insulin, cpeptide and BHOB labs pending - although likely hypoglycemic episodes due to insulin use #ESRD on HD - Dr. Bedolla, consulted - Plan to resume HD schedule #Abdominal distention Gastric outlet obstruction vs Gastroparesis - NG removed; cl liquid diet currently and can advance as tolerated. Will add bowel regimen if needed. - Consider further workup if not improved #Hx of DM II - Holding home meds while hypoglycemic #Hx of HTN - currently holding as glucose still low; will resume once stable. Continue to monitor BPs. #Hx of Asthma - Duonebs PRN #Systolic Murmur - Noted previously. Patient with no syncope, angina or dyspnea. PCP: Mario Alberto PPx: Heparin, protonix Diet: cl liquid CODE STATUS: FULL CODE Disposition: Stable, overall prognosis poor. Case discussed with Dr. Castro Addendum - Attending - Attending Attestation Date/Time: 01/08/19 9060 I personally evaluated the patient and discussed the management with Dr. Cano. I agree with the History, Examination, Assessment and Plan documented above with any addition or exceptions noted below. Patient alert, but has had a very variable story concerning her insulin use depending on the interview. Nonfocal exam. She is still having marginal sugars - will continue D5 and hopeful d/c tomorrow.
[2019-01-08] MEDS ORDERED: Epoetin (ESRD) 20,000 UNITS/ML SC SCH (07:30)
[2019-01-08 08:26] LABS: Hemoglobin A1c 5.2 % (4.0-6.0)
[2019-01-08] MEDS: Sodium Chloride 0.9% 10 ML ONE ×2 (09:04→10:57)
[2019-01-08] MEDS: Heparin 5,000 UNITS/ML VIAL SC SCH ×3 (09:04→21:34)
--- NOTE | 2019-01-08 09:08 | PRG ---
DATE OF SERVICE: 01/08/2019 SUBJECTIVE: Ms. Fierro is a 73-year-old black female with ESRD-on maintenance hemodialysis and was said to have been admitted due to hypoglycemia. We are now being consulted for her maintenance hemodialysis. She did miss dialysis yesterday. I have scheduled her for dialysis today. The patient has no new complaints today. OBJECTIVE: VITAL SIGNS: Blood pressure 137/51, heart rate 68, respiratory rate 23, temperature 98.2, pulse ox 97% on room air. GENERAL: Awake, alert, comfortable, not in distress. SKIN: Adequate turgor. HEENT: Slightly pale conjunctivae. Anicteric sclerae. NECK: No neck mass. No carotid bruits. No JVD. CHEST: No deformities. LUNGS: Clear breath sounds. HEART: Normal sinus rhythm. No murmur. No gallops. No rubs. ABDOMEN: Globular, soft, nontender. No masses. EXTREMITIES: No edema. MEDICATIONS: Medications of January 08, 2019, was reviewed. LABORATORY DATA: Laboratories of January 08, 2019; hemoglobin 8.9. Sodium 136, potassium 3.6, chloride 95, carbon dioxide 33, BUN 37, creatinine 8.07. AST 12, ALT 7. Most recent glucose 93. ASSESSMENT AND PLAN: 1. End-stage renal disease, stable. We will continue current hemodialysis regimen 3 times a week. She did miss her hemodialysis. We will schedule her for dialysis today with fluid removal only as tolerated. 2. Anemia. Restart Epogen 7500 units subcu weekly. 3. Agree with current management. Job ID: [id number]
[2019-01-08] MEDS ORDERED: Sodium Chloride 0.9% 10 ML ONE ×2 (10:43→14:46)
[2019-01-08] MEDS ORDERED: Dextrose 50 % In Water 50 ML SYRINGE ONE ×3 (10:43→14:48)
[2019-01-08] MEDS ORDERED: Dextrose 50 % In Water 50 ML SYRINGE IV PRN (11:00)
[2019-01-08] MEDS ORDERED: EPOETIN ALFA-EPBX (ESRD) 4,000 UNIT/ML VIAL SC SCH (12:00)
[2019-01-09 05:08] LABS: ALT (SGPT) Less than 7 U/L (8-55); AST (SGOT) 12 U/L (5-34); Albumin 2.7 g/dL (3.4-4.8); Alkaline Phosphatase 56 U/L (40-110); Anion Gap 9 mmol/L (10-20); BUN (Urea Nitrogen) 21 mg/dL (9.8-20.1); Bilirubin, Total 0.5 mg/dL (0.2-1.2); Calc. Creatinine Clearance 9 mL/min (70-130); Calcium 7.9 mg/dL (7.8-10.44); Carbon Dioxide 32 mmol/L (23-31); Chloride 99 mmol/L (98-107); Estimated GFR-MDRD 9; Globulin 2.8 g/dL (2.4-3.5); Glucose 85 mg/dL (83-110); Potassium 3.3 mmol/L (3.5-5.1); Protein, Total 5.5 g/dL (6.0-8.3); Sodium 137 mmol/L (136-145)
--- NOTE | 2019-01-09 06:26 | PDOC.FM ---
- Subjective Subjective: NAEO. Per nursing, patient had to be given juice frequently to keep sugars up. Concern that she would be able to keep sugars up on her own at home. Patient resting comfortably in bed. No complaints of pain or discomfort. Has been tolerating PO. Had dialysis yesterday. - Objective MAR Reviewed: Yes Vital Signs & Weight: Vital Signs (12 hours) Temp Pulse Resp BP BP Pulse Ox 01/09/19 04:08 98.8 F 63 14 141/59 H 97 01/09/19 00:00 98.1 F 60 18 143/65 H 100 01/08/19 19:48 98.7 F 63 16 148/71 H 97 Weight Weight 70.76 kg I&O: 01/07/19 01/08/19 01/09/19 06:59 06:59 06:59 Intake Total 240 1550 Output Total 4200 Balance 240 -2650 Result Diagrams: 01/09/19 06:31 01/09/19 04:04 Phys Exam - Physical Examination Constitutional: NAD HEENT: moist MMs, sclera anicteric Neck: supple Respiratory: clear to auscultation bilateral Cardiovascular: RRR, no significant murmur, no rub Gastrointestinal: soft, non-tender, no distention, positive bowel sounds trace edema b/l to knees Neurological: non-focal Psychiatric: normal affect Skin: no rash, normal turgor, cap refill <2 seconds Dx/Plan (1) Hypoglycemia Code(s): E16.2 - HYPOGLYCEMIA, UNSPECIFIED Status: Acute (2) Intractable nausea and vomiting Code(s): R11.2 - NAUSEA WITH VOMITING, UNSPECIFIED Status: Acute (3) DM2 (diabetes mellitus, type 2) Status: Chronic Qualifiers: Diabetes mellitus complication status: with kidney complications Diabetes mellitus complication detail: with chronic kidney disease Qualified Code(s): E11.22 - Type 2 diabetes mellitus with diabetic chronic kidney disease (4) ESRD (end stage renal disease) on dialysis Code(s): N18.6 - END STAGE RENAL DISEASE; Z99.2 - DEPENDENCE ON RENAL DIALYSIS Status: Chronic (5) Hypertension Code(s): I10 - ESSENTIAL (PRIMARY) HYPERTENSION Status: Chronic Qualifiers: Hypertension type: essential hypertension Qualified Code(s): I10 - Essential (primary) hypertension (6) Systolic murmur Code(s): I38 - ENDOCARDITIS, VALVE UNSPECIFIED Status: Chronic (7) Hyperkalemia Code(s): E87.5 - HYPERKALEMIA Status: Acute - Plan Plan: #Hypoglycemia Unknown etiology as patient reports no insulin use - however patient did tell another member of the resident team that she had used insulin prior to arrival. Possibly due to medications and kidney disease with missed dialysis session. - Glucose has stabilized over the last 24 hours, will space checks to q4. Encourage feeding - Recommend no further hypoglycemic medications - AM Cortisol within normal range, plasma insulin and BHOB normal, cpeptide pending - although likely hypoglycemic episodes due to insulin use and missed HD. #ESRD on HD - Dr. Bedolla, consulted - Resume HD schedule of 3x/week #Abdominal distention, improved Gastric outlet obstruction vs Gastroparesis - cl liquid diet currently and can advance as tolerated. #Hx of DM II - recommend discontinuing meds as patient's A1c is very controlled. A1c of 5.2. #Hx of HTN - BPs have been at goal for patient's age. Can consider discontinuing BP medications. #Hx of Asthma - Duonebs PRN #Systolic Murmur - Noted previously. Patient with no syncope, angina or dyspnea. PCP: Mario Alberto PPx: Heparin, protonix Diet: cl liquid CODE STATUS: FULL CODE Disposition: Stable, overall prognosis poor. Will discuss with patient potential placement vs HH. Case discussed with Dr. Gerber. Addendum - Attending - Attending Attestation Date/Time: 01/09/19 1042 I personally evaluated the patient and discussed the management with Dr. Cano I agree with the History, Examination, Assessment and Plan documented above with any addition or exceptions noted below. Patient BS stable enough for dismissal to home with HH at patient sisters home. Insulin to be discontinued at this time f/u pending studies regard hypogylcemia evaluation.
[2019-01-09] MEDS ORDERED: Metoclopramide HCl 10 MG TAB PO PRN (06:27)
[2019-01-09] MEDS ORDERED: Potassium Chloride 20 MEQ TAB PO SCH (06:30)
[2019-01-09 06:47] LABS: Hemoglobin 9.2 g/dL (12.0-16.0); Mean Corpuscular HGB CONC 32.4 g/dL (32.0-36.0); Mean Corpuscular Hemoglobin 29.4 pg (27.0-31.0); Mean Corpuscular Volume 90.7 fL (78.0-98.0); Mean Platelet Volume 9.3 fL (7.4-10.4); Platelet Count 157 thou/uL (130-400); RBC Distribution Width 14.3 % (11.5-14.5); Red Blood Cell (RBC) Count 3.13 mill/uL (4.20-5.40); White Blood Cell (WBC) Count 4.3 thou/uL (4.8-10.8)
[2019-01-09 07:13] LABS: Band 1 % (5-11); Eosinophils 1 % (0-10); Hypersemented Neutrophil SLIGHT; Lymphocytes 35 % (21-51); MDiff Complete? YES; Monocytes 14 % (0-10); Neutrophil 47 % (42-75); Platelet Morphology Comment Appears Adequate; Polychromasia SLIGHT = 2-3 cells (100X) (0-2/hpf); Reactive Lymphocytes 1 % (0-10); Schistocytes SLIGHT = 2-5 cells (100X) (0-1/hpf)
[2019-01-09] MEDS ORDERED: Aspirin 81 mg Enteric Coated Tablet PO SCH (09:00)
--- NOTE | 2019-01-09 09:07 | PRG ---
DATE OF SERVICE: 01/09/2019 SUBJECTIVE: Ms. Fierro is a 73-year-old black female with ESRD and on maintenance hemodialysis. She underwent hemodialysis yesterday without any difficulty. She voices no new complaints today. She was initially admitted for hypoglycemia, which is currently resolved. OBJECTIVE: VITAL SIGNS: Blood pressure is 165/50, heart rate 60, respiratory rate 16, temperature 98.8, and pulse ox 98%. GENERAL: Noted to be awake, alert, sitting comfortable, not in distress. SKIN: Adequate turgor. HEENT: Slightly pale conjunctivae. Anicteric sclerae. NECK: No neck mass. No carotid bruits. No JVD. CHEST: No deformities. LUNGS: Clear breath sounds. No wheezing. No crackles. HEART: Normal sinus rhythm. No murmur. No gallops. No rubs. ABDOMEN: Globular, soft, and nontender. No masses. EXTREMITIES: No edema. No deformities. MEDICATIONS: Medications of 01/09/2019 were reviewed. LABORATORY DATA: On 01/09/2019: White count 4.3 and hemoglobin 9.2. Sodium 137, potassium 3.3, chloride 99, carbon dioxide 32, BUN 21, creatinine 5.79, calcium 7.9, and albumin 2.7. ASSESSMENT AND PLAN: 1. End-stage renal disease, stable, tolerating current hemodialysis regimen. Fluid removal only as tolerated. No indication for any dialysis today. 2. Hypoglycemia, resolved. 3. Anemia, continuing weekly Epogen regimen with this patient. 4. Agree with current management. Job ID: [id number]
[2019-01-09] MEDS: Sevelamer Carbonate 800 MG TAB PO SCH ×2 (09:45→11:39)
[2019-01-09] MEDS: Heparin 5,000 UNITS/ML VIAL SC SCH (09:46)
[2019-01-09 11:39] VITALS: BP 159/51; TEMP 98.5
[2019-01-09] MEDS ORDERED: Terazosin HCl 1 MG CAP PO SCH (21:00)
[2019-01-10] MEDS ORDERED: Amlodipine 10 MG TAB PO SCH (09:00)
--- NOTE | 2019-01-10 10:48 | DIS ---
DATE OF ADMISSION: 01/07/2019 DATE OF DISCHARGE: 01/09/2019 RESIDENT: Charis Cano MD ADMITTING ATTENDING: Dr. Matthew Aguilera. DISCHARGE ATTENDING: Dr. Chester Gerber. CONSULTS: Nephrology and Case Management. PROCEDURES: Hemodialysis on 01/08/2019. DISCHARGE MEDICATIONS: 1. Zoloft 50 mg oral daily. 2. Proventil HFA two puffs inhalation four times daily as needed. 3. Reglan 10 mg oral every 6 hours as needed. 4. Hydralazine 75 mg oral every 8 hours as needed. 5. Renvela 800 mg oral 3 times daily with meals. 6. Aspirin 81 mg oral daily. 7. Hydralazine 40 mg oral every 6 hours. 8. Terazosin 1 mg oral at bedtime. DISCONTINUED MEDICATIONS: 1. Atenolol 50 mg oral daily. 2. Norvasc 10 mg oral daily. 3. Minoxidil four tablets oral at bedtime. 4. Tramadol 50 mg oral twice daily as needed. PRIMARY DIAGNOSIS: Hypoglycemia. SECONDARY DIAGNOSES: End-stage renal disease on hemodialysis, diabetes type 2, hypertension, asthma, and systolic murmur. HISTORY OF PRESENT ILLNESS/HOSPITAL COURSE: This is a 73-year-old female, who presented to the ER after the family noticed that the patient was not her usual self. On arrival, her glucose was found to be in the 20s. The patient was given D10 by EMS and was brought to the ER. She was found to be diaphoretic , short of breath, confused, nauseous, and weak. The patient also endorsed nausea and vomiting as well as abdominal pain. The patient stated that she usually takes 30 to 35 units of NPH 70/30 insulin nightly. She stated that her last dose of insulin was the night prior to arrival. The patient's story changed when talking to another residence that she had not taken insulin for 2 days. The patient did endorse missing dialysis on the previous Wednesday from admission. On arrival, the patient 's labs were notable for potassium of 3.4, BUN and creatinine of [address] scan of the abdomen showed evidence of gastroparesis with marked distention of the stomach. The patient was admitted to tele/obs. Her sugars were monitored closely every 2 hours. She did require two amps of D5 for low sugars. Dr. Bedolla of Nephrology was consulted for dialysis. She did get dialysis on 01/08/2019. The patient's blood pressure was mostly at goal throughout her stay with a few pressures over goal. She was continued on her hydralazine and other blood pressure medications were discontinued. SHe can follow up outpatient with her PCP to adjust these medications as necessary. She was advised to discontinue her insulin upon discharge and to follow up closely with her PCP. The patient was tolerating p.o. well on the day of discharge. Her sugars had normalized and last sugar taken prior to discharge was 106. She was given hypoglycemic precautions and told to return to the ER if any of these presented. The patient's PCP, Dr. Llanes was contacted of her admission and upon discharge, so he can have continuity of care on the medication changes for this patient. He states that the patient is somewhat non- compliant and often no shows for her appointments. The patient made appointment prior to discharge with Mario Alberto's office. DISPOSITION: Stable, but prognosis is guarded. DISCHARGE INSTRUCTIONS: 1. Location: Home with home health. 2. Activity: Ad connor with fall precautions. 3. Diet: Consistent carbohydrate high-protein. 4. Followup: Follow up with PCP, Dr. Llanes within 7 days. Job ID: [id number] [facility]
== END 2019-01-09 14:50 | disposition home or self-care (01) ==
LOC: ERS 11:40 → 2NO 16:28
PROVIDERS: ADMIT Family Medicine; ATTEND Family Medicine
DX: E11.649 Type 2 diabetes mellitus with hypoglycemia without coma (principal); I12.0 Hypertensive chronic kidney disease with stage 5 chronic kidney disease or end stage renal disease; E11.22 Type 2 diabetes mellitus with diabetic chronic kidney disease; N18.6 End stage renal disease; D63.1 Anemia in chronic kidney disease; J45.909 Unspecified asthma, uncomplicated; F17.290 Nicotine dependence, other tobacco product, uncomplicated; I38 Endocarditis, valve unspecified; J90 Pleural effusion, not elsewhere classified; J98.11 Atelectasis; K82.8 Other specified diseases of gallbladder; D25.9 Leiomyoma of uterus, unspecified; M16.0 Bilateral primary osteoarthritis of hip; N28.9 Disorder of kidney and ureter, unspecified; E27.8 Other specified disorders of adrenal gland; E87.5 Hyperkalemia; Z79.4 Long term (current) use of insulin; Z79.899 Other long term (current) drug therapy; Z88.2 Allergy status to sulfonamides; Z99.2 Dependence on renal dialysis
CPT/HCPCS: 71045; 74176; 80053 ×3; 82010; 82533; 82553; 82962 ×3; 83036; 83525; 83690; 83735; 84484 ×2; 84681; 85025 ×3; 93005; 96361; 96372 ×3; 96374; 96375; 99285; G0378 ×3; Q5105; 36415; 36416; 90935; G0257; J1644; J2405

== ENCOUNTER 2019-02-10 13:28 | Outpatient (CLI) | payer MEDICARE, MEDICAID ==
--- NOTE | 2019-02-10 14:17 | RAD ---
XR Lumbar Spine 1 view History: Chronic renal failure. 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 There is a age-indeterminate compression deformity of L1 superior endplate. There are splenic arterial calcifications. High-grade vascular calcifications. Phleboliths in the rig ht hemipelvis. Limited evaluation of the obturator rings appear intact. Impression: 1. Either a large ring osteophyte at the left femoral head/neck junction versus fracture. Left hip ra diographs recommended. 2. Age-indeterminate possible compression fracture of L1. Lateral radiographs recommended. 3. Severe vascular calcifications.
== END 2019-02-10 13:29 | disposition home or self-care (01) ==
LOC: RAD 13:28
PROVIDERS: ATTEND Physical Medicine & Rehabilitation
DX: M54.5 Low back pain (principal); N18.9 Chronic kidney disease, unspecified; Z99.2 Dependence on renal dialysis; W19.XXXA Unspecified fall, initial encounter; I70.90 Unspecified atherosclerosis
CPT/HCPCS: 72020

== ENCOUNTER 2019-12-28 14:35 | Outpatient (CLI) | payer MEDICARE, MEDICAID ==
[2019-12-29 04:24] LABS: SARS-CoV-2 MS2 Positive; SARS-CoV-2 N Gene Negative; SARS-CoV-2 S Gene Negative; SARS-CoV-2 by NAA Not Detected (NotDetected); SARS-CoV-2 orf1ab Negative
--- NOTE | 2020-01-02 07:16 | EKG ---
Test Reason : PREOP Blood Pressure : / mmHG Vent. Rate : 069 BPM Atrial Rate : 069 BPM P-R Int : 150 ms QRS Dur : 130 ms QT Int : 442 ms P-R-T Axes : 067 -46 091 degrees QTc Int : 473 ms Normal sinus rhythm Left axis deviation Left ventricular hypertrophy with QRS widening and repolarization abnormality Cannot rule out Septal infarct , age undetermined Abnormal ECG Confirmed by TRINH CHOWDARY, MESHA ([id number]) on 01/02/2020 7:15:58 AM Referred By: MAU Confirmed By:MESHA TSANG MD
== END 2019-12-28 14:36 | disposition home or self-care (01) ==
LOC: LABBT 14:35
PROVIDERS: ATTEND Orthopaedic Surgery Hand Surgery
DX: Z01.818 Encounter for other preprocedural examination (principal); I96 Gangrene, not elsewhere classified; Z20.828 Contact with and (suspected) exposure to other viral communicable diseases
CPT/HCPCS: 93005; U0003; 87635; 93010

== ENCOUNTER 2020-01-01 11:55 | Day surgery (SDC) | payer MEDICARE, MEDICAID ==
[~2020-01-01 11:55] MED LIST: Lidocaine 1% PF 5 ML VIAL ONE; Metoclopramide HCl 10 MG/2 ML VIAL ONE; Ondansetron PF 4 MG/2 ML Vial ONE; PHENYLEPHRINE-NS 100 MCG/ML 10 ML SYRINGE ONE; PROPOFOL 200 MG/20 ML VIAL ONE
[2020-01-01] MEDS ORDERED: Bacitracin Zinc Ointment 30 gm TUBE ONE (13:46)
[2020-01-01] MEDS ORDERED: Fentanyl 100 MCG/2 ML VIAL ONE (13:48)
[2020-01-01] MEDS ORDERED: Famotidine/PF 20 mg/2ml Vial ONE (13:48)
[2020-01-01 14:17] LABS: #Eosinphils 0.1 thou/uL (0.0-0.7); #Lymphocytes 0.7 thou/uL (1.20-3.40); #Monocytes 0.5 thou/uL (0.11-0.59); #Neutrophils 4.8 thou/uL (1.40-6.50); %Basophils 0.6 % (0.0-1.0); %Eosinophils 2.2 % (0.0-10.0); %Monocytes 8.3 % (0.0-10.0); Hemoglobin 10.2 g/dL (12.0-16.0); Mean Corpuscular HGB CONC 31.8 g/dL (32.0-36.0); Mean Corpuscular Hemoglobin 30.1 pg (27.0-31.0); Mean Corpuscular Volume 94.7 fL (78.0-98.0); Mean Platelet Volume 8.5 fL (7.4-10.4); Platelet Count 193 thou/uL (130-400); RBC Distribution Width 12.6 % (11.5-14.5); Red Blood Cell (RBC) Count 3.37 mill/uL (4.20-5.40); White Blood Cell (WBC) Count 6.2 thou/uL (4.8-10.8)
[2020-01-01 14:31] LABS: Anion Gap 16 mmol/L (10-20); BUN (Urea Nitrogen) 34 mg/dL (9.8-20.1); Calc. Creatinine Clearance 0 mL/min (70-130); Calcium 8.5 mg/dL (7.8-10.44); Carbon Dioxide 29 mmol/L (23-31); Chloride 99 mmol/L (98-107); Estimated GFR-MDRD 7; Glucose 72 mg/dL (83-110); Potassium 3.9 mmol/L (3.5-5.1); Sodium 140 mmol/L (136-145)
[2020-01-01] MEDS ORDERED: Bupivacaine PF 0.5% 30 ML VIAL ONE (15:06)
--- NOTE | 2020-01-01 21:06 | OP ---
DATE OF PROCEDURE: 01/01/2020 PREOPERATIVE DIAGNOSES: 1. 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 2. Renal failure on dialysis. POSTOPERATIVE DIAGNOSES: 1. 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 2. Renal failure on dialysis. 3. Circulation seen in the proximal 1 cm of the skin flap palmar greater than dorsal at the base of the proximal phalanx. PROCEDURE PERFORMED: Disarticulation, left ring finger at the metacarpophalangeal joint with closure primarily. FINDINGS: Adequate bleeding almost 15 mL inspection at palmar flap with a palmar flap longer than dorsal. SPECIMEN REMOVED: The whole left ring finger at the distal to the metacarpal head except for the skin as described above. ANESTHESIA: Injected 20 mL 0.5% Marcaine with no epinephrine. INDICATIONS: The patient had progressive from darkened to blackened to dry gangrenous changes prior to even making to our clinic five days prior to procedure. Because we worried about infection if we allow this to continue, we proceeded with the amputation at the level, where we could find bleeding. Intraoperative, this was found at the level of the very proximal base of the proximal phalanx. DESCRIPTION OF PROCEDURE: The patient was prepped and draped. We gave 10 mL of 0.5% Marcaine 1 cm proximal metacarpal head without epinephrine as a block. We then proceeded without tourniquet and made a ratchet shape palmar longer than dorsal flap almost a centimeter distal to the MP joint. We then dissected bluntly to perform disarticulation. Once this was done, we saw where the bleeding was, resected another 3 to 4 mm dorsal skin and then folded the palmar skin, which had excellent bleeding throughout up to the dorsal edge. There was no undue tension on the wound and then we closed it without electrocautery to allow for some bleeding with interrupted 3-0 nylon simple pattern. Bacitracin, Adaptic, 4x4s, and two Kerlix were applied along with bias-cut stockinette to prevent constriction. The patient left the operating room without evidence of anesthetic or operative complication. Job ID: [id number]
== END 2020-01-01 17:03 | disposition home or self-care (01) ==
LOC: SDC 11:55
PROVIDERS: ATTEND Orthopaedic Surgery Hand Surgery
PROC: 0X6T0Z0 Detachment at Left Ring Finger, Complete, Open Approach (ICD-10-PCS; principal; 2020-01-01)
DX: E11.52 Type 2 diabetes mellitus with diabetic peripheral angiopathy with gangrene (principal); I96 Gangrene, not elsewhere classified; I12.0 Hypertensive chronic kidney disease with stage 5 chronic kidney disease or end stage renal disease; E11.22 Type 2 diabetes mellitus with diabetic chronic kidney disease; N18.6 End stage renal disease; E78.5 Hyperlipidemia, unspecified; J45.909 Unspecified asthma, uncomplicated; G56.03 Carpal tunnel syndrome, bilateral upper limbs; Z79.4 Long term (current) use of insulin; Z79.82 Long term (current) use of aspirin; Z79.899 Other long term (current) drug therapy; Z88.2 Allergy status to sulfonamides; Z99.2 Dependence on renal dialysis
CPT/HCPCS: 36415; 80048; 85025; 88305; 88311; J0690; J2405; J2704; J2765; J3010; S0020; S0028